=== PATIENT | male | born 1985 | race Caucasian/White ===

== ENCOUNTER 2024-10-18 10:25 | Outpatient (AMB) | payer BC, SELFPAY ==
--- NOTE | 2024-10-18 10:28 | MHC.PC.OV ---
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 Allergies Seasonal Allergies Allergy (Verified 10/18/24 10:32) Itchy runny eyes and nose Shell Fish Allergy (Uncoded 10/18/24 10:32) Tongue Itches Tobacco use date assessed: 10/18/24 Dental Screening Dental Screen Date: 10/18/24 Did you have a dental visit in the last 12 months?: Yes Did you have a dental problem in the last 6 months where you did not have access to dental care?: No Was dental information given to patient?: Patient has dentist HPI HPI Comments History of Present Illness Details This is a 39-year-old female with a past medical history of shellfish allergy and seasonal allergies presenting to establish care. She transferred from another practice. She is allergic to shellfish (crustaceans). No recent reactions. Consumption of shrimp and lobster causes tongue tingling and tongue and lip itching. She does not have an EpiPen that is up-to-date. EpiPen was submitted to the pharmacy, and we reviewed administration and follow up care. She is overdue for an annual gynecology exam. She has an IUD, and this is her 5th here with it. She is referred to Gynecology. She is due for a mammogram. This is ordered. Patient's sister had breast cancer at age 52. No family history of colon cancer. We discussed colonoscopy is recommended at age 43. Patient donates plasma. She tried to donate last March, but they told her that 1 of her screening labs was potentially abnormal. She brought paperwork from [employer] that says that her serum protein electrophoresis could potentially be abnormal. Albumin 57.5 (reference range 49.5 to 69.9) Alpha 1 3.8 (reference range 2.4 to 6.0) Alpha to 8.2 (reference range 5.6 to 14.6) Beta 10.3 (reference range 7.3-15.1) Gamma 20.2 (reference range 7.3-22.3) She has a form that she provided to me that needs to be filled out before she can donate again. Patient reports bilateral shoulder and knee pain that has been bothering her for a few months. She has a history of fraying of the right rotator cuff in the past that was treated a few years ago with physical therapy and activity restriction. Her shoulders bother her more when she tries to lift. She has some clicking in her right shoulder. Patient says her knees have always hurt, but they have been bothering her more in the last few months. Knee pain occurs with weight-bearing activities. Ice alleviates symptoms. She does not take medications for them. Reports that she did have a tick bite on her stomach last year. No bull's-eye rash. No joint swelling or redness. No history of trauma. No fatigue, fevers or chills. Her diastolic blood pressure is mildly elevated today. There is a family history of hypertension. Denies personal history of hypertension. She says she has some social anxiety. She also drank a caffeinated beverage before the appointment. Declines immunizations. ROS: Constitutional: No unexplained weight loss, fever, chills, fatigue or night sweats. Eyes: No vision changes, blurry vision, double vision, eye pain, eye redness, eye discharge. ENT: No hearing loss, sneezing, congestion, runny nose or sore throat. Respiratory: No shortness of breath, cough or sputum production. Cardiovascular: No chest pain, chest pressure or chest discomfort. No palpitations or pedal edema. Gastrointestinal: No anorexia, nausea, vomiting or diarrhea. No abdominal pain or blood in stool. Genitourinary: No dysuria, hematuria, urinary frequency. Neurologic: No headache, dizziness, syncope, unilateral weakness, ataxia, numbness or tingling in the extremities. Musculoskeletal: See HPI Hematologic/Lymphatics: No bleeding or bruising. No painful lymph nodes. Skin: No rash , itching or changing moles or freckles. Endocrine: No cold or heat intolerance. No polyuria or polydipsia. Psychiatric: No depression or SI/HI. Physical exam: Constitutional: Alert, in no distress. Head: Normocephalic. Eyes: Pupils are equal, round and reactive to light. Extraocular muscles intact. Ear, Nose and Throat: Canals clear. TMs normal. Normal nasal mucosa. No nasal discharge. No oral lesions. Neck: Supple, Full range of motion. No lymphadenopathy. No palpable thyroid masses. Respiratory: Clear to auscultation. Cardiovascular: S1 S2 regular. No murmurs. Gastrointestinal: Abdomen soft, non-tender, non-distended. Normal bowel sounds. No palpable masses. Neurologic: No focal neurological deficits. Symmetric patellar reflexes. Moves all extremities spontaneously. Sensation intact bilaterally. Skin: No rashes Musculoskeletal: Shoulders: No visible deformity, redness or swelling. Crepitus of the right shoulder joint with range of motion activities. Full range of motion of shoulders. Bilateral empty can maneuver produces shoulder pain. Shoulder strength 5/5 bilaterally. Knees: No crepitus, deformity, swelling or redness of the knees. Full range of motion of the knees. Nontender to palpation. Strength 5/5 bilaterally. Negative Marion maneuver bilaterally. Extremities: Warm and well perfused. No clubbing, cyanosis or edema. Intact peripheral pulses upper and lower extremities. Psychiatric: Normal mood and affect [facility] Medical History (Updated 10/18/24 @ 13:33 by MAMIE Fuchs) Elevated blood pressure reading without diagnosis of hypertension Pain, joint, multiple sites Abnormal blood chemistry test Screening for cardiovascular condition Routine physical examination Social History (Updated 10/18/24 @ 10:35 by Ashley Lancaster MA) Housing: House Alcohol intake: current Comment: Occassionaly Patient Tobacco Use Status: Never used Tobacco e-Cigarette/Vaping Use: Never Used Second Hand Smoke Exposure: No service: No Current occupational status: employed 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 1. Little interest or pleasure in doing things: not at all 2. Feeling down, depressed, or hopeless: not at all 3. Trouble falling or staying asleep, or sleeping too much: not at all 4. Feeling tired or having little energy: several days 5. Poor appetite or overeating: not at all 6. Feeling bad about yourself - or that you are a failure or have let yourself or your family down: not at all 7. Trouble concentrating on things, such as reading the newspaper or watching television: several days 8. Moving or speaking so slowly that other people could have noticed. Or the opposite - being so fidgety or restless that you have been moving around a lot more than usual: not at all 9. Thoughts that you would be better off or of hurting yourself in some way: not at all Total score: 2 Depression Screening Interpretation: Negative Depression Screening Done: Yes [id number] - PHQ-9 Billing: Patient declined-do not bill Source: Developed by Drs. Evaristo Story, Renu Brower, Himanshu Ramos and colleagues, with an educational rhonda from [employer]. Thrive Questionnaire Date Thrive assessed: 10/18/24 I am a: Patient What is your living situation today?: I have a steady place to live Within the past 12 months, did the food you bought not last and you didn't have the money to get more?: Never true Within the past 12 months, did you worry whether your food would run out before you got money to buy more?: Never true Do you have trouble paying for medicines?: No Do you have trouble getting transportation to medical appointments?: No Do you have trouble paying your heating and electricity bill?: No Do you have trouble taking care of your child, family member or friend?: No Do you have trouble with day-to-day activities such as bathing, preparing meals, shopping, managing finances, etc.?: No Are you currently unemployed and looking for a job?: No Are you interested in more education?: Yes Please select the resources that you would like help with: Education Currently or been in a relationship where the following occur: No concerns reported THRIVE Score: 0 AUDIT C Alcohol Use Questionnaire (AUDIT-C) 1. How often do you have a drink containing alcohol?: Monthly or less 2. How many drinks containing alcohol do you have on a typical day when you are drinking?: 1 or 2 3. How often do you have six or more drinks on one occasion?: Never Total Score: 1 Score Reviewed/Action Taken: No APRIL-7 AMB Questionnaire APRIL-7 Date APRIL - 7 assessed: 10/18/24 Feeling nervous, anxious, or on edge: 1 = Several days Not being able to stop or control worryin = Several days Worrying too much about different things: 1 = Several days Trouble relaxin = Several days Being so restless that it is hard to sit still: 1 = Several days Becoming easily annoyed or irritable: 1 = Several days Feeling afraid as if something awful might happen: 1 = Several days Total APRIL-7 score (0-4 normal; 5-9 mild; 10-14 moderate; 15-21 severe): 7 Source: Developed by Drs. Evaristo Story, Renu Brower, Himanshu Ramos and colleagues, with an educational rhonda from [employer]. APRIL-7 Assessment Billing APRIL-7 Assessment Tool: APRIL-7 Assessment 37750 Physical exam (Primary Care) Vital Signs: Last Vital Signs Temp 98.0 F 10/18/24 10:36 Pulse 77 10/18/24 10:36 Resp 14 10/18/24 10:36 BP 128/88 10/18/24 10:36 Pulse Ox 97 10/18/24 10:36 Oxygen Delivery Method Room Air 10/18/24 10:36 BMI result Body Mass Index 34.8 Tobacco/Smoking Status: Tobacco use Status Tobacco use date assessed 10/18/24 10/18/24 10:40 Patient Tobacco Use Status Never used Tobacco 10/18/24 10:40 e-Cigarette/Vaping Use Never Used 10/18/24 10:40 PHQ-9: PHQ-9 Score PHQ-9: Total score 2 10/18/24 11:14 Depression Screening Interpretation: Negative Thrive Assessment: Date of Thrive Assessment Date Thrive assessed 10/18/24 10/18/24 10:40 Currently or been in a relationship where the following occur: No concerns reported Coding Level of Care Code New Pt Prev Care 40-64y(28238) Diagnoses Routine physical examination Z00.00 Screening for cardiovascular condition Z13.6 Abnormal blood chemistry test R79.9 Pain, joint, multiple sites M25.50 Elevated blood pressure reading without diagnosis of hypertension R03.0 Additional Codes APRIL-7 Assessment Billing - APRIL-7 Assessment Tool: APRIL-7 Assessment 05296 ([id number]) Assessment & Plan Assessment & Plan (1) Routine physical examination: Code(s): Z00.00 - Encounter for general adult medical examination without abnormal findings Category: Medical Plan: Patient is seen today for a routine physical. 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 - Cholesterol screening - Osteoporosis prevention including calcium/vitamin D intake, weight bearing exercise & smoking cessation - Nutritional and exercise counseling - Counseling of injury prevention including fire prevention, smoke alarms and seat belt usage - Screening for depression - Recommendation of an eye exam - Screening for substance abuse (2) Screening for cardiovascular condition: Code(s): Z13.6 - Encounter for screening for cardiovascular disorders Category: Medical (3) Abnormal blood chemistry test: Code(s): R79.9 - Abnormal finding of blood chemistry, unspecified Category: Medical Plan: Ordered SPEP, immunofixation, CBC, CMP, immunoglobulins. (4) Pain, joint, multiple sites: Code(s): M25.50 - Pain in unspecified joint Category: Medical Plan: Ordered x-rays of the shoulders and knees, rheumatoid factor, EVIE, sed rate and Lyme and vitamin-D. (5) Elevated blood pressure reading without diagnosis of hypertension: Code(s): R03.0 - Elevated blood-pressure reading, without diagnosis of hypertension Category: Medical Plan: Decrease caffeine. Follow low-sodium diet. Regular exercise recommended. Patient also would like nutrition consult. Referral placed. She will check blood pressures at home and bring a log with her in 8 weeks to the follow up appointment. Plan Follow up in 8 weeks for a blood pressure check in to review results. Orders: Orders Protein Electrophoresis, Serum Today R77.8 - Other specified abnormalities of plasma proteins, R79.9 - Abnormal finding of blood chemistry, unspecified Teachey/Lambda Light Chain Serum Today R77.8 - Other specified abnormalities of plasma proteins, R79.9 - Abnormal finding of blood chemistry, unspecified Immunofixation Pnl, Serum Today R77.8 - Other specified abnormalities of plasma proteins, R79.9 - Abnormal finding of blood chemistry, unspecified Immunoglobulins,IgG IgA IgM Today R77.8 - Other specified abnormalities of plasma proteins, R79.9 - Abnormal finding of blood chemistry, unspecified Lyme IgG/IgM w/reflex to WB Today M25.50 - Pain in unspecified joint, R79.9 - Abnormal finding of blood chemistry, unspecified, Z00.00 - Encounter for general adult medical examination without abnormal findings, Z13.6 - Encounter for screening for cardiovascular disorders Rheumatoid Factor Today M25.50 - Pain in unspecified joint, R79.9 - Abnormal finding of blood chemistry, unspecified, Z00.00 - Encounter for general adult medical examination without abnormal findings, Z13.6 - Encounter for screening for cardiovascular disorders Erythrocyte Sedimentation Rate Today M25.50 - Pain in unspecified joint XR Shoulder Neftaly min 2V Today M25.50 - Pain in unspecified joint XR Knee Neftaly 3V Today M25.50 - Pain in unspecified joint TSH reflex Free T4 Today Z00.00 - Encounter for general adult medical examination without abnormal findings, Z13.6 - Encounter for screening for cardiovascular disorders Complete Blood Count no Diff Today Z00.00 - Encounter for general adult medical examination without abnormal findings, Z13.6 - Encounter for screening for cardiovascular disorders Comprehensive Met. Panel Today Z00.00 - Encounter for general adult medical examination without abnormal findings, Z13.6 - Encounter for screening for cardiovascular disorders Lipid Panel Today E78.5 - Hyperlipidemia, unspecified, Z00.00 - Encounter for general adult medical examination without abnormal findings, Z13.6 - Encounter for screening for cardiovascular disorders MM screening mammo BI Today Z12.31 - Encounter for screening mammogram for malignant neoplasm of breast Vitamin D 25-OH (D2 and D3) Today M25.50 - Pain in unspecified joint, M85.80 - Other specified disorders of bone density and structure, unspecified site, R79.9 - Abnormal finding of blood chemistry, unspecified, Z00.00 - Encounter for general adult medical examination without abnormal findings, Z13.6 - Encounter for screening for cardiovascular disorders EVIE Reflex Titer and Pattern Today M25.50 - Pain in unspecified joint, R79.9 - Abnormal finding of blood chemistry, unspecified, Z00.00 - Encounter for general adult medical examination without abnormal findings, Z13.6 - Encounter for screening for cardiovascular disorders Referrals STATION INSTALLER Referral Z00.00 - Encounter for general adult medical examination without abnormal findings Liner Worker Nutrition Referral E66.811 - Obesity, class 1 Medications: New epinephrine (EpiPen) for 2 doses 0.3 mg (0.3 mL) IM Q10M PRN 2 ea 1RF anaphylaxis
[2024-10-18 10:36] VITALS: BP 128/88; PULSE 77; RESP 14; TEMP 36.7; O2SAT 97; BMI 34.8
== END 2024-10-18 11:29 | disposition home or self-care (01) ==
LOC: HO.HMCFM 10:26
PROVIDERS: PCP Physician Assistant Medical; Visit Provider Physician Assistant Medical
DX: Z00.00 Encounter for general adult medical examination without abnormal findings (principal); Z13.6 Encounter for screening for cardiovascular disorders; R79.9 Abnormal finding of blood chemistry, unspecified; M25.50 Pain in unspecified joint; R03.0 Elevated blood-pressure reading, without diagnosis of hypertension

== ENCOUNTER → 2024-10-18 10:25 | Outpatient (BNVA) | payer BC, SELFPAY | PROVIDERS: PCP Physician Assistant Medical; Visit Provider Physician Assistant Medical | DX: Z00.00 Encounter for general adult medical examination without abnormal findings (principal); R79.9 Abnormal finding of blood chemistry, unspecified; R77.8 Other specified abnormalities of plasma proteins; M25.50 Pain in unspecified joint; R03.0 Elevated blood-pressure reading, without diagnosis of hypertension; E66.811 Obesity, class 1; Z68.34 Body mass index [BMI] 34.0-34.9, adult | CPT/HCPCS: 96127 ==

== ENCOUNTER 2024-11-07 09:00 | Outpatient (REF) | payer BC, SELFPAY ==
--- NOTE | ~2024-11-07 | XR_ITS ---
CLINICAL HISTORY: Bilateral knee pain 3 view right knee 3 view left knee Comparison: None Findings: No fractures or dislocations. No significant loss of joint space, osteophytes, or erosions. No joint effusion. No radiopaque foreign body. IMPRESSION: No acute fracture, dislocation or significant joint effusion. This document has been electronically signed by: Robyn Kwon DO on 11/07/2024 16:19:30
--- NOTE | ~2024-11-07 | XR_ITS ---
CLINICAL HISTORY: M25.50 - Pain in unspecified joint Left shoulder four views Comparison: None Findings: No acute fracture or dislocation identified. No acute focal bony abnormality. No radiopaque foreign body noted. Impression: No acute bony abnormality Right shoulder four views Comparison: None Findings: No acute fracture or dislocation identified. No acute focal bony abnormality. No radiopaque foreign body noted. Impression: No acute bony abnormality This document has been electronically signed by: Leno Gotti MD on 11/07/2024 19:57:43
--- OUTSIDE RECORDS SUMMARY | 2024-11-07 09:32 | XMS_ITS | Data Portability ---
Author Organization [facility] Address [address] [place] [address] Care Team Providers Care Uptwister Tender Name Role Phone FLAKITO MOSES Primary Care Provider [phone] ANN FLAKITO Referring Provider Assessment No assessment recorded. Plan of Treatment Reminders Order Date Submit Date Provider Last Modified By Organization Details Last Modified Time Details Appointments None record ed. Lab pap, LB + HR HPV 2019 020 [facility], [address] [place], [address], 0 08:41:06 Referral None record ed. Procedures None record ed. Surgeries None record ed. Imaging None record ed. Medication Orders cephal exin 500 mg capsul e 2021 022 [id number], [address] [place], [place], [id number], 2 10:21:12 Patient TargetsNo targets recorded. Patient Instructions Encounter Date Encounter Id Patient Instructions Last Modified By Organization Details Last Modified Time 11/26/2014 [id number] Pt? ? ?doing well.? ? ? Reviewed effectiveness, precautions. Advised to monitor, call as needed. Plans regular audit manager care with PCP. carrie Not available 11/26/2014 15:15:22 08/21/2019 [id number] Routine counselling regarding periods, pap screening, breast health, sexual health. Communication encouraged. I advised pt I highly doubt IUD is influence on libido. Discussed iud and BTL. Pt wants to continue w IUD. Will schedule removal/replacemen t in September. carrie Not available 08/21/2019 11:11:38 02/28/2020 [id number] Pt doing well wi th IUD. Reviewed effectiveness, precautions. Advised to monitor, call as needed. Plans routine audit manager care {{here* with PCP}}. Reassured breast exam. Advised monitor, report changes to PCP. Ask sister if genetics planned. adamgaro Not available 02/28/2020 17:12:13 Reason for Referral None Reported. Results Created Date Observation Date Name Description Value Unit Range Abnormal Flag Note LastModifiedBy Organization Detail LastModifiedTime 08/21/19 20 08/27/2019 pap, LB + HR HPV diagnosis: Commen t . normal NEGAT KALEB FOR INTRA EPITH ELIAL MAKEDA N OR MARIE JOSUE . Not Available [facility] [address] [place] [address], [address], 08/27/2019 14:11:34 08/21/19 20 08/27/2019 pap, LB + HR HPV spec adequacy Commen t . normal Satis facto ry for evalu ation . Endoc ervic al and/o r squam ous metap lasti c cells (endo cervi yoshi compo nent) are prese nt. Not Available [facility] [address] [place] [address], [address], 08/27/2019 14:11:34 08/21/19 20 08/27/2019 pap, LB + HR HPV performed by Rayo t . normal Ginny dunlap, Cytot yovani franco (ASCP ) Not Available [facility] [address] [place] [address], [address], 08/27/2019 14:11:34 08/21/19 20 08/27/2019 pap, LB + HR HPV . . . normal Not Available [facility] [address] [place] [address], [address], 08/27/2019 14:11:34 08/21/19 20 08/27/2019 pap, LB + HR HPV note Commen t . normal The Pap smear is a scree kieran test mary davidson to aid in the detec tion of yang ligna nt and malig nant condi tions of the uteri ne cervi x. It is not a diagn ostic proce dure and shoul d not be used as the sole means of detec ting cervi yoshi cance r. Both false -posi tive and false -nega tive repor ts do occur . Not Available [facility] [address] [place] [address], [address], 08/27/2019 14:11:34 08/21/19 20 08/27/2019 pap, LB + HR HPV test methodolog Commen t . normal This liqui d based ThinP rep(R ) pap test was scree stuart with the use of an image guide marily theodore. Not Available [facility] [address] [place] [address], [address], 08/27/2019 14:11:34 08/21/19 20 08/27/2019 pap, LB + HR HPV HPV aptima Negati ve negati ve normal This nucle ic acid ampli ficat ion test detec ts fourt een high- risk HPV types (16,1 8,31, 33,35 ,39,4 5,51, 52,56 ,58,5 9,66, 68) witho ut diffe renti ation . Perfo rmed at: [facility] [place] [address], [place] [address] Lab Direc tor: Dario harrell MD, Phone : [phone] Perfo rmed at: [facility] [place] [address] [facility] [address], [place] [address] Lab Direc tor: Dario harrell MD, Phone : [phone] Not Available [facility] [address] [place], [address], 08/27/2019 14:11:34 Result Notes None recorded. Problems Name Problem SNOMED Code Status Onset Date Resolution Date Notes Provider Name and Address Organization Details Recorded Time No current problems or disability 025267915 Active Jj Morrow MD [address] [place] [address], [address], [facility] 0 10:44:41 Severe pre-eclamps ia - not delivered 830910112 Completed 08/21/2019 Jj Morrow MD [address] [place], [place] [address] [place], [address], [facility] 0 10:44:37 Severe pre-eclamps ia - delivered 152651095 Completed 08/21/2019 Jj Morrow MD [address] [place], [place] [address] [place], [address], [facility] 0 10:44:34 Transient hypertensio n of - not delivered 128998742 Completed 08/21/2019 Jj Morrow MD [address] [place], [place] [address] [place], [address], [facility] 0 10:44:39 Forceps delivery - delivered Completed 08/21/2019 Jj Morrow MD [address] [place], [place] [address] [place], [address], [facility] 0 10:44:27 Mechanical complicatio n of intrauterin e contracepti ve device 403510953 Completed 08/21/2019 Jj Morrow MD [address] [place], [place] [address] [place], [address], [facility] 0 10:44:31 Problem Notes None recorded. Procedures Surgical History Date Name Laterality Status Provider Name and Address Organization Details Recorded Time 12/27/19 20 IUD Insertion completed Jj Morrow MD [address] [place], [place] [address] [place], [address], [facility] 12/27/2019 10:28:56 12/27/19 20 IUD Removal completed Jj Morrow MD [address] [place], [place] [address] [place], [address], [facility] 12/27/2019 10:30:07 08/21/19 20 Date of Last Pap Smear completed Jj Morrow MD [address] [place], [place] [address] [place], [address], [facility] 08/29/2019 14:03:38 09/26/19 15 Mirena IUD Insertion completed Jj Morrow MD [address] [facility] [place], [address], [facility] 09/25/2014 11:53:01 09/26/19 15 Hysteroscopy with Endometrial Biopsy or IUD Removal completed Jj Morrow MD [address] [facility] [place], [address], [facility] 09/25/2014 11:52:10 hernia repair completed Lauren Moreno CMA [facility] 08/30/2014 13:39:39 Imaging Results None recorded. Procedure Notes None recorded. 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 [employer] Issuing Agency Serial Number Lot Number Status Provider Name and Address Organization Details Recorded Time Mirena IUD [facility] [id number] Y Dana Fuchs RN [facility], [facility] 12/27/2019 10:20:26 Allergies No known drug allergies Medications Name Sig Start Date Stop Date Status Note LastModified by Organization Details LastModified Time amoxicilli n 500 mg capsule 08/21 completed Not Available Not Available Not Available Mirena 21 mcg/24 hr (up to 8 years) 52 mg intrauteri ne device Take by intrauter ine route. 2014 active third IUD, rem/re pl 2019 Not Available Not Available Not Available azithromyc in 250 mg tablet 08/21 completed Not Available Not Available Not Available ibuprofen 800 mg tablet TAKE 1 TABLET BY MOUTH THREE TIMES DAILY FOR 5 DAYS NEEDED FOR MILD PAIN active Not Available Not Available No t Available prednisone 5 mg tablet 08/21 completed Not Available Not Available Not Available permethrin 5 % topical cream 08/21 completed Not Available Not Available Not Available sulfametho xazole 800 mg-trimeth oprim 160 mg tablet TAKE 1 TABLET BY MOUTH TWICE DAILY FOR 10 DAYS active Not Available Not Available No t Available citalopram 20 mg tablet 08/21 completed Not Available Not Available Not Available cephalexin 500 mg capsule TAKE 1 CAPSULE BY MOUTH EVERY 6 HOURS FOR 5 DAYS active Not Available Not Available No t Available epinephrin e 0.3 mg/0.3 mL injection, auto-injec tor active Not Available Not Available Not Available albuterol sulfate HFA 90 mcg/actuat ion aerosol inhaler active Not Available Not Available Not Available fluticason e propionate 50 mcg/actuat ion nasal spray,susp ension active Not Available Not Available Not Available amoxicilli n 875 mg-potassi um clavulanat e 125 mg tablet TAKE 1 TABLET BY MOUTH TWICE DAILY FOR 3 DAYS active Not Available Not Available No t Available clindamyci n phosphate 1 % topical solution 08/21 completed Not Available Not Available Not Available azithromyc in 500 mg tablet 08/21 completed Not Available Not Available Not Available Vitals Date Recorded Body height Body mass index (BMI) Body weight Systolic blood pressure Diastolic blood pressure Provider Name and Address Organization Details Last Updated DateTime 08/21/2019 162.56 cm 33 kg/m2 50636.74 g 120 mm[Hg] 70 mm[Hg] Lauren Moreno CMA [facility] 0 10:36:19 Date Recorded Body height Body mass index (BMI) Body weight Systolic blood pressure Diastolic blood pressure Provider Name and Address Organization Details Last Updated DateTime 02/28/2020 162.56 cm 34.2 kg/m2 24815.88 g 142 mm[Hg] 90 mm[Hg] Ellie dennison [facility] 0 15:52:42 Date Recorded Body temperature Heart rate Oxygen saturation Oxygen saturation in Arterial blood by Pulse oximetry Systolic blood pressure Diastolic blood pressure Provider Name and Address Organization Details Last Updated DateTime 2 97.8 [degF] 92 /min 98 % 98 % 142 mm[Hg] 88 mm[Hg] Kayla Eason [facility] 2 09:48:15 Social History Question Answer Notes LastModified by Organizat ion Details LastModified Time Tobacco Smoking Status Never Smoker [facility] 08/30/2014 13:39:39 What Is Your Level Of Alcohol Consumption? Occasional Information not available 08/30/2014 Do You Or Have You Ever Used E-cigarettes Or Vape? Never Used Electronic Cigarettes Information not available 08/21/2019 Illicit Drugs No Information not available 08/21/2019 Marital Status Information not available 08/21/2019 What Was The Date Of Your Most Recent Tobacco Screening? 08/21/2019 adamour Information not available 08/21/2019 Are You Sexually Active? Yes Information not available 08/30/2014 Sex: Unknown Functional Status None recorded. Mental Status None recorded. Family History Relationship Description Onset Age of this Age Resolved Age Notes LastModified by Organization Details LastModified Time Paternal Uncle Malignant neoplasm of lung edack Not available 2019 10:33:51 Paternal Uncle Malignant neoplasm of brain edack Not available 2019 10:34:02 Brother Hypertensive disorder edack Not available 2019 10:34:22 Brother Diabetes mellitus edack Not available 2019 10:34:29 Sister Ductal carcinoma in situ of breast 48 double mastec serena 2020- pt not sure if geneti cs offere d adamour Not available 02/28/2020 16:16:00 Notes:heart disease both shubham es grandparents Medical History Condition Response other Y Gynecological History Statement/Question Response 1 Contraception Mirena Date of LMP 12/17/2019 Para 1 Last menstrual period History of abnormal pap unsure Date of Last Pap Smear 08/21/2019 Obstetrics History GPAL:G 1 P 1 0 0 1 Type Value Full Term 1 Living 1 Total 1 Past Encounters Encounter ID Performer Location Encounter Start Date Encounter Closed Date Diagnosis/Indication Diagnosis SNOMED-CT Code Diagnosis ICD10 Code Diagnosis Note [id number] Allison Holguin MD [facility] [place] [address] [place] [address] 04/22/2009 13:28:25 04/22/2009 13:51:29 [id number] Jerry [place] MD [facility] [address] [place] [address] 02/26/2009 13:13:00 02/26/2009 13:46:10 [id number] Allison Holguin MD [facility] [address] [address] 05/21/2009 09:57:04 05/21/2009 11:00:03 [id number] Allison Holguin MD [facility] [place] [facility] [address] [place] [address] 03/25/2009 10:35:51 03/25/2009 11:17:54 [id number] Jj Morrow MD [facility] [address] [place] [address] [place] [address] 09/05/2009 14:55:04 09/05/2009 15:31:45 [id number] Allison Holguin MD [facility] [address] [place] [address] [place] [address] 07/25/2009 10:24:45 07/25/2009 11:30:36 [id number] Jj Morrow MD - Outpatien t [address] [facility] [place] [address] 07/25/2009 00:00:00 12/01/2010 03:30:06 [id number] Allison Holguin MD [facility] [address] [place] [address] [place] [address] 07/02/2009 10:00:12 07/02/2009 10:35:19 [id number] Jj Morrow MD - In-Patien t [address] [facility] [place] [address] 07/27/2009 00:00:00 12/01/2010 03:30:06 [id number] Jerry [place] MD [facility] [address] [place] [address] [place] [address] 06/19/2009 10:48:42 06/19/2009 11:11:50 [id number] Allison Holguin MD [facility] [address] [place] [address] [place] [address] 07/16/2009 09:12:10 07/16/2009 09:40:42 [id number] Jj Morrow MD [facility] [address] [place] [address], [facility] [place] [address] 07/22/2009 10:51:30 07/22/2009 11:57:24 [id number] Jj Morrow MD [facility] [address] [place] [address] [place] [address] 07/08/2009 10:49:29 07/08/2009 11:21:09 [id number] Jj Morrow MD [facility] [address] [place] [address] [place] [address] 07/02/2009 00:00:00 12/01/2010 03:30:06 [id number] Jj Morrow MD [facility] [address] [place] [address] 08/30/2014 13:19:08 08/30/2014 15:40:07 Uses IUD (intrauterine device) contraception 088736393 [id number] Jj Morrow MD [facility] [address] [place] [address] 09/25/2014 10:54:20 10/01/2014 10:59:28 Mechanical complication of intrauterine contraceptive device 791116203 Insertion of intrauterine contraceptive device 11079933 [id number] Jj Morrow MD [facility] [address] [place] [address] 11/26/2014 14:41:08 11/27/2014 08:35:45 IUD check 989010058 [id number] Jj Morrow MD [facility] [address] [place] [address] 08/21/2019 10:19:02 08/21/2019 11:14:27 Screening for malignant neoplasm of cervix 566809888 Z12.4 Uses IUD (intrauterine device) contraception 714687144 Z97.5 [id number] Jj Morrow MD [facility] [address] [place] [address] 12/27/2019 09:43:42 12/27/2019 11:49:59 Uses IUD (intrauterine device) contraception 859237975 Z97.5 Insertion of intrauterine contraceptive device 45645795 Z30.848 [id number] Jj Morrow MD [facility] [address] [place] [address] 02/28/2020 15:32:28 02/28/2020 16:24:10 IUD check 592200504 Z30.431 Lesion of breast 8902676 04 N60.81 [id number] MAMIE LARA [facility] [place] [address] [place] [address] 12/09/2021 09:09:24 12/09/2021 10:43:36 Avulsion of skin 166488391 T14.8XXA Pt presents with skin avulsion to left index fingervita ls WNL, evidence of fingertip avulsion with active bleeding. Area cleaned, surgifoam placed on wound along with non stick telfa and pressure dressing. Will start on Keflex given knife was dirty and extent of wound. Advised keeping dressing in place for minimum 48 hours. Pt will call pcp regarding tetanus and call back should she not be up to date. Advised daily dressing changes after initial dressing. warning signs of when to RTC discussed with patient who is in agreement with plan Health Concerns Section Related Observation LastModified by Organization Detai ls LastModified Time None Recorded Concern Status LastModified by Organization Details LastModified Time None Recorded Advance Directives Directive None Recorded Payers Insurance Date Sequence Insurance Name Policy Number Policy Church Covered Member ID Church Member ID Guarantor Name 04/28/2012 [facility] 12/23/2019 1 [employer] PL[employer] (HMO) [id number] Zelda Sarah [id number] [facility] 12/23/2019 1 [facility] Zelda Smith [id number] [facility] 08/21/2019 1 [facility] (PPO) Marv Smith [id number] Zelda [place] 12/09/2021 1 [place] O [facility] (O) [id number] Zelda Smith [id number] Zelda Sarah Notes Date Note Type Note Provider Name and Address Organization Details Recorded Time 08/21/2019 text/html wants to discuss continuing with Derek hasn't had annual recently. Patient reports no abnormal vaginal bleeding, periods very light. Happy with method. Concern about decr libido- relationship good- both work full and parttime jobs. Has 10 yo son- childbearing complete. Jj Morrow MD [address] [place] [address], [address], [facility] 08/21/2019 11:12:53 12/27/2019 text/html Procedure review ed and signed consent obtained. - IRMA Morrow MD [address] [place] [address], [phone], [facility] 12/27/2019 10:32:32 02/28/2020 text/html Breast MassRepor luis bypatient.Location:rig ht Onset/Timin day Quality:asymptomatic; localized; no lump palpable. Severity:mild Context:performs breast self examination; Sister DCIS Associated Symptoms:no fever; no skin redness; no nipple discharge; no breast swelling; no arm pain; no arm swelling; no chest painContraception FollowupReported bypatient.Context:IUD Followup- Type-Mirena Associated Symptoms:no side effects; No menses so far. IC OK. Onset/Timin months; no issues.Notes: Pt presents today for iud f/u. also would like you to look at a spot on right breast she is concerned about, no pain. YL Jj Morrow MD [address] [place], [address], [facility] 02/28/2020 17:12:36 12/09/2021 text/html 36 year old fema le presents with a laceration of the left 2n finger, she cut it with a knife. Last TD unknown -LG Pt presents with laceration along left second finger. Cut it with a knife yesterday 11-12am. Unsure about tetanus shot.-she was putting pressure on it with bandaids, this am tried to change bandage and it wouldn't stay d/t bleeding. Jaime Gallo III, MD [address] [place], [address], [facility] 12/09/2021 11:16:10 OBGyn Episode Ob Episode Information Episode Created Date Number of Fetuses Patient Bloodtype Patient rh Status Prepregnancy Weight lbs Domestic Partner Domestic Partner Phone Father Name Emergency Telecommunications Dispatcher Status 01/10/20 09 1 CLOSED Fetus Data First Name Last Name Admitted to NICU Weight (g) Sex Living Outcome Pediatric Complications Fetus ID Race Codes Race Delivery Type [id number] Rodríguez Calculation Initial Rodríguez Date Initial Exam Date Initial Exam Provider Initial Ultrasound Date Last Menstrual Period Date Ultra Sound Weeks Gestation 01/09/2009 0 Eighteen To Twenty Week Rodríguez Update Ultra Sound Date Fundal Height At Umbil Quickening Date Ultra Sound Latest Weeks Gestation Final Rodríguez Confirmed By Final Rodríguez Confirmed Date Final Rodríguez Date Ultra Sound Latest Days Gestation 0 07/25/19 10 0 Menstrual History Last Menstrual Date Menses Monthly On Bcp Conception Prior Menses Frequency Hcg Plus Date Menarche Onset Age Delivery Information Delivery Date Delivery Type Labor Anesthesia Weeks Gestation Incision Type Labor Labor Length Hrs Delivered By Post Complications Tubal Sterilization Discharge Date Comments Discharge Information Feeding Method Contraceptive Method Maternal HG B and HCT Levels
--- OUTSIDE RECORDS SUMMARY | 2024-11-07 09:32 | XMS_ITS | Data Portability ---
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 Plan of Treatment Reminders Order Date Submit Date Provider Last Modified By Organization Details Last Modified Time Details Appointments None recorded. Lab pap, LB + reflex HR HPV if ASC-U, ASC-H, LSIL, HSIL, SHARATH - Reflex HPV testing for ASCUS and LGSIL 2015 016 JUSTIN [facility] (Centralized Electronic Ordering - All Locations), Patient Can Go To The Location Of Their Choice, [id number] 6 14:36:09 CBC 2015 016 [facility], [address] [place] [address], [address], 6 10:05:29 CMP, serum or plasma 2015 016 [facility], [address] [place] [address], [address], 6 10:05:29 Referral None recorded. Procedures None recorded. Surgeries None recorded. Imaging None recorded. Medication Orders permethri n 5 % topical cream 2016 017 [facility][id number], [address], [place], [id number], 7 16:41:51 triamcino lone acetonide 0.025 % topical ointment 2015 016 [id number], [address], [place], [id number], 6 10:34:09 meclizine 12.5 mg tablet 2015 016 [facility] #[id number], [address], [place], [phone], 6 09:47:47 Patient TargetsNo targets recorded. Patient Instructions Encounter Date Encounter Id Patient Instructions Last Modified By Organization Details Last Modified Time 01/24/2017 [id number] After a discussi on of treatment options, which included consideration of best practices, patient preferences, and the patient? s individual lifestyle and treatment goals, as well as consideration and attempted mitigation of any barriers to meeting the patient? s goals, the following treatment plan and objectives were adopted: -Good to see you today! -Take your medications as prescribed, and please let us know if you have any unwanted or unexpected side effects. -Please review the patient education provided to you today. -Keep your follow-up appointments as scheduled. -Please let us know if you are worse in any way, we are manager completions 24 hours a day, 7 days a week by phone: [phone]. -Please let us know if you have any further questions or concerns. Not available 01/24/2017 16:44:44 > 50% of 20 irene te appointment spent in counseling. Not available 01/24/2017 16:46:50 Reason for Referral None Reported. Results Created Date Observation Date Name Description Value Unit Range Abnormal Flag Note LastModifiedBy Organization Detail LastModifiedTime 08/16/19 16 08/18/2015 CMP, serum or plasm a glucose 88 mg/dL 70-100 Not Available [address], [address], 08/18/2015 08:28:35 08/16/19 16 08/18/2015 CMP, serum or plasm a BUN 8 mg/dL 7-18 Not Available [address], [address], 08/18/2015 08:28:35 08/16/19 16 08/18/2015 CMP, serum or plasm a creatinine 0.9 mg/dL 0.8-1. 3 Not Available [address], [address], 08/18/2015 08:28:35 08/16/19 16 08/18/2015 CMP, serum or plasm a B/C 8.9 ratio Not Available [address], [address], 08/18/2015 08:28:35 08/16/19 16 08/18/2015 CMP, serum or plasm a GFR -non 81.3 mL/mi n Recom qasim d GFR by the Natio nal Kidne y Found ation >60 mL/mi n/1.7 3m2 - Sumi l <60 mL/mi n/1.7 3m2 - Chron ic Kidne y Disea se <15 mL/mi n/1.7 3m2 - Kidne y Failu re Not Available [address], [address], 08/18/2015 08:28:35 08/16/19 16 08/18/2015 CMP, serum or plasm a GFR - if 93.5 mL/mi n For Afric an Ameri can patie nts: Resul ts Multi plied by 1.21 Not Available [address], [address], 08/18/2015 08:28:35 08/16/19 16 08/18/2015 CMP, serum or plasm a sodium 139 mmol/ L 136-14 5 Not Available [address], [address], 08/18/2015 08:28:35 08/16/19 16 08/18/2015 CMP, serum or plasm a potassium 4.5 mmol/ L 3.5-5. 1 Not Available [address], [address], 08/18/2015 08:28:35 08/16/19 16 08/18/2015 CMP, serum or plasm a chloride 100 mmol/ L 96-107 Not Available [address], [address], 08/18/2015 08:28:35 08/16/19 16 08/18/2015 CMP, serum or plasm a anion gap 8.1 5.0-15 .0 Not Available [address], [address], 08/18/2015 08:28:35 08/16/19 16 08/18/2015 CMP, serum or plasm a CO2 31 mmol/ L 21-32 Not Available [address], [address], 08/18/2015 08:28:35 08/16/19 16 08/18/2015 CMP, serum or plasm a calcium 8.8 mg/dL 8.5-10 .3 Not Available [address], [address], 08/18/2015 08:28:35 08/16/19 16 08/18/2015 CMP, serum or plasm a total protein 7.3 g/dL 6.4-8. 2 Not Available [address], [address], 08/18/2015 08:28:35 08/16/19 16 08/18/2015 CMP, serum or plasm a albumin 4.0 g/dL 3.4-5. 0 Not Available [address], [address], 08/18/2015 08:28:35 08/16/19 16 08/18/2015 CMP, serum or plasm a globulin 3.3 g/dL Not Available [address], [address], 08/18/2015 08:28:35 08/16/19 16 08/18/2015 CMP, serum or plasm a A/G 1.2 ratio 0.8-2. 0 Not Available [address], [address], 08/18/2015 08:28:35 08/16/19 16 08/18/2015 CMP, serum or plasm a total bilirubin 0.50 mg/dL 0.00-1 .00 Not Available [address], [address], 08/18/2015 08:28:35 08/16/19 16 08/18/2015 CMP, serum or plasm a AST 20 U/L 15-37 Not Available [address], [address], 08/18/2015 08:28:35 08/16/19 16 08/18/2015 CMP, serum or plasm a ALT 24 U/L 30-65 low Not Available [address], [address], 08/18/2015 08:28:35 08/16/19 16 08/18/2015 CMP, serum or plasm a alk. phos. 49 U/L 50-136 low Not Available [address], [address], 08/18/2015 08:28:35 08/16/19 16 08/18/2015 CBC WBC 5.5 K/? ? ?L 4.0-10 .0 Not Available [address], [address], 08/18/2015 10:43:33 08/16/19 16 08/18/2015 CBC RBC 5.19 M/? ? ?L 3.93-5 .22 Not Available [address], [address], 08/18/2015 10:43:33 08/16/19 16 08/18/2015 CBC HGB 14.9 g/dL 11.2-1 5.7 Not Available [address], [address], 08/18/2015 10:43:33 08/16/19 16 08/18/2015 CBC HCT 44.1 % 34.1-4 4.9 Not Available [address], [address], 08/18/2015 10:43:33 08/16/19 16 08/18/2015 CBC MCV 85.0 ? ? ?L 79.4-9 4.8 Not Available [address], [address], 08/18/2015 10:43:33 08/16/19 16 08/18/2015 CBC MCH 28.7 pg 25.6-3 2.2 Not Available [address], [address], 08/18/2015 10:43:33 08/16/19 16 08/18/2015 CBC MCHC 33.8 g/dL 32.2-3 5.5 Not Available [address], [address], 08/18/2015 10:43:33 08/16/19 16 08/18/2015 CBC plt 189.0 K/? ? ?L 182.0- 369.0 Not Available [address], [address], 08/18/2015 10:43:33 08/16/19 16 08/18/2015 CBC MPV 11.3 9.4-12 .3 Not Available [address], [address], 08/18/2015 10:43:33 08/16/19 16 08/18/2015 CBC neut% 72.7 % 34.0-7 1.1 high Not Available [address], [address], 08/18/2015 10:43:33 08/16/19 16 08/18/2015 CBC neut# 4.0 1.6-6. 1 Not Available [address], [address], 08/18/2015 10:43:33 08/16/19 16 08/18/2015 CBC lymph % 17.6 % 19.3-5 1.7 low Not Available [address], [address], 08/18/2015 10:43:33 08/16/19 16 08/18/2015 CBC lymph # 1.0 K/? ? ?L 1.2-3. 7 low Not Available [address], [address], 08/18/2015 10:43:33 08/16/19 16 08/18/2015 CBC mono% 8.2 % 4.7-12 .5 Not Available [address], [address], 08/18/2015 10:43:33 08/16/19 16 08/18/2015 CBC mono# 0.5 0.2-0. 4 high Not Available [address], [address], 08/18/2015 10:43:33 08/16/19 16 08/18/2015 CBC eo% 1.1 % 0.7-5. 8 Not Available [address], [address], 08/18/2015 10:43:33 08/16/19 16 08/18/2015 CBC eo# 0.1 0.0-0. 4 Not Available [address], [address], 08/18/2015 10:43:33 08/16/19 16 08/18/2015 CBC baso% 0.4 % 0.1-1. 2 Not Available [address], [address], 08/18/2015 10:43:33 08/16/19 16 08/18/2015 CBC baso# 0.0 0.0-0. 1 low Not Available [address], [address], 08/18/2015 10:43:33 08/16/19 16 08/18/2015 CBC RDW-CV 11.8 % 11.7-1 4.4 Not Available [address], [address], 08/18/2015 10:43:33 09/19/19 16 09/19/2015 pap, LB results Patie nt Name: ZELDA JOYNER : 1984 (Age: 30) Lab Acces chase #: [id number] Colle ction Date: 2015 Acces chase Date: 2015 Sign Out Date: 2015 Tissu e Sourc e: 1: THINP REP POWER CRANE OPERATOR PAP TEST, CERVI YOSHI: Final Diagn osis: NEGAT KALEB FOR INTRA EPITH ELIAL LESIO N OR MARIE CAMACHOCY . Shift in glo sugge stive of bacte rial vagin osis. Satis facto ry for evalu ation . Endoc ervic al/tr ansfo rmati on zone ABSEN T. Clini yoshi Histo ry: Date of Last Menst rual Perio d: not avail able Menst rual Histo ry: not avail able Contr acept kaleb Histo ry: not avail able Ancil umberto Testi ng: HPV(A SCUS) any age, order ed on curre nt speci men: LGSIL Case image d by the ThinP rep Imagi ng Syste m with fransisco bruner or keshav kathleen. Perfo rmed at [facility] ate Refer ence [facility] Cytol ogy, [address] [place] Clini yoshi Histo ry (othe r): Z12.4 Prima ry Patho logis t: Phone #: [phone], On-Ca ll Patho logis t: [id number] Not Available [facility] (Centralized Electronic Ordering - All Locations) Patient Can Go To The Location Of Their Choice, [address] 09/24/2015 14:36:09 Result Notes None recorded. Problems Name Problem SNOMED Code Status Onset Date Resolution Date Notes Provider Name and Address Organization Details Recorded Time Allergic rhinitis 98496326 Active Alysha Juárez, NUTRITION DIRECTOR-C [address] [place] [address], [phone] , [facility] 6 10:34:08 Nausea 573769168 Active Alysha GILDA Juárez-C [address] [place] [address], [phone] , [facility] 6 10:05:29 Eczema 16543571 Active Alysha GILDA Juárez-C [address] [place] [address], [address] , [facility] 6 10:34:08 Bacterial vaginosis 342086180 Active AlyshaRAMON Hinojosa [address] [place] [address], [address] , [facility] 6 12:50:55 Headache 14716627 Active 2005 Not Available [facility] 3 03:13:38 Neoplasm of uncertain behavior of skin 01315351 Completed 200605/23/2013 Not Available [facility] 3 02:01:52 Contusion of face, scalp and neck, excluding eye(s) Completed 200605/23/2013 Not Available [facility] 3 02:04:11 Knee pain Completed 200505/23/2013 Not Available [facility] 3 02:00:42 Temporoman dibular joint disorder 36951868 Active Not Available [facility] 3 03:13:38 Pain of shoulder region 57629558 Completed 05/23/2013 Not Available [facility] 3 02:01:02 General symptom 105924144 Completed 200605/23/2013 Not Available [facility] 3 02:04:00 Myopia 64506688 Active 2005 Not Available [facility] 3 03:13:38 Lipoma 60141757 Completed 200605/23/2013 Not Available [facility] 3 02:04:02 Lymphadeno amara 01866081 Completed 200605/23/2013 Not Available [facility] 3 02:03:13 Mycosis 4611722 Active 2006 Not Available [facility] 3 03:13:38 Amenorrhea 52188778 Active 2007 Not Available [facility] 3 03:13:38 Problem, abnormal test 30928292 Active 2006 Not Available [facility] 3 03:13:38 Malaise and fatigue 145669117 Completed 200605/23/2013 Not Available [facility] 3 02:00:20 Problem Notes None recorded. Medical Equipment None Reported. Allergies No known drug allergies Medications Name Sig Start Date Stop Date Status Note LastModified by Organization Details LastModified Time amoxicill in 500 mg capsule active Not Available Not Available Not Available Mirena 21 mcg/24 hr (up to 8 years) 52 mg intrauter ine device 2009 active implante d 09/2009 - [facility] Not Available Not Available Not Available doxycycli ne hyclate 100 mg capsule Take 1 capsule twice a day by oral route for 30 days. 06/13 completed Not Available Not Available Not Available ibuprofen 800 mg tablet Take 1 tablet 3 times a day by oral route with meals for 10 days. 09/19 completed Not Available Not Available Not Available permethri n 5 % topical cream APPLY (THOROUG HLY MASSAGE INTO SKIN FROM HEAD TO SOLES OF FEET) BY TOPICAL ROUTE ONCE LEAVE ON FOR 8-14 HR, THEN REMOVE BY THOROUGH WASHING active Not Available Not Available No t Available penicilli n V potassium 500 mg tablet TK 2 TS PO NOW AND THEN 1 T PO Q 6 H UNTIL FINISHED 09/01 completed Not Available Not Available Not Available meclizine 12.5 mg tablet Take 1/2 -1 tablet(s ) up to 3 times a day by oral route for 10 days. 09/18 completed Not Available Not Available Not Available metronida zole 500 mg tablet TK 1 T PO Q 12 H TAT 05/24 completed Not Available Not Available Not Available tetracycl ine 250 mg capsule Take 1 capsule twice a day by oral route. 2011 active Not Available Not Available Not Avai lable alprazola m 0.5 mg tablet Take 1 tablet 3 times a day by oral route as needed. 2012 active Not Available Not Available Not Avai lable citalopra m 20 mg tablet Take 0.5 mg daily x 1 week then increase 1 tablet daily active Not Available Not Available No t Available doxycycli ne monohydra te 100 mg capsule TK ONE C PO BID active Not Available Not Available No t Available triamcino lone acetonide 0.025 % topical ointment APPLY A THIN LAYER AA BID PRN active Not Available Not Available No t Available Polytrim 10,000 unit-1 mg/mL eye drops Instill 1 drop every 3 hours by ophthalm ic route in affected eye(s) up to 6x/day x 7-10 days.. 2012 active Not Available Not Available Not Avai lable fluticaso ne propionat e 50 mcg/actua tion nasal spray,remigio pension Use 1 spray to each nostril BID active Not Available Not Available No t Available clindamyc in phosphate 1 % topical solution Apply a thin layer to the affected area(s) by topical route 2 times per day active Not Available Not Available No t Available Zyrtec Take 1.00 tabs PRN active Not Available Not Available No t Available ProAir HFA 90 mcg/actua tion aerosol inhaler Inhale 2 puffs 4 times a day by inhalati on route as needed. active Not Available Not Available No t Available Vitals Date Recorded Body height Body mass index (BMI) Body weight Heart rate Oxygen saturation Oxygen saturation in Arterial blood by Pulse oximetry Body temperature Systolic blood pressure Diastolic blood pressure Provider Name and Address Organization Details Last Updated DateTime 7 160.02 cm 30.6 kg/m2 48972.4 8 g 76 /min 99 % 99 % 98.8 [degF] 120 mm[Hg] 70 mm[Hg] Lydia Harvey MA [facility] 7 16:34:33 Date Recorded Body height Provider Name an d Address Organization Details Last Updated DateTime 08/29/2017 160.02 cm Maite Schwartz MA [facility] 08/29/2017 09:27:09 Date Recorded Body mass index (BMI) Body weight Body temperature Heart rate Oxygen saturation Oxygen saturation in Arterial blood by Pulse oximetry Systolic blood pressure Diastolic blood pressure Provider Name and Address Organization Details Last Updated DateTime 8 31 kg/m2 72582.6 6 g 98 [degF] 66 /min 99 % 99 % 120 mm[Hg] 82 mm[Hg] YIFAN Frey [address] [place] [address] [place], [address] [place] [address] 8 09:36:38 Date Recorded Body height Body mass index (BMI) Body temperature Body weight Oxygen saturation Oxygen saturation in Arterial blood by Pulse oximetry Heart rate Systolic blood pressure Diastolic blood pressure Provider Name and Address Organization Details Last Updated DateTime 6 161.925 cm 27.7 kg/m2 98.7 [degF] 85648.7 792 g 98 % 98 % 87 /min 140 mm[Hg] 90 mm[Hg] Amanda [facility] 6 17:17:03 Date Recorded Body weight Body height Body mass index (BMI) Heart rate Systolic blood pressure Diastolic blood pressure Provider Name and Address Organization Details Last Updated DateTime 6 92243.3 7157 g 160.02 cm 28.5 kg/m2 86 /min 120 mm[Hg] 78 mm[Hg] Araceli Jessica [facility] 6 09:50:04 Date Recorded Body height Body weight Body mass index (BMI) Heart rate Body temperature Systolic blood pressure Diastolic blood pressure Provider Name and Address Organization Details Last Updated DateTime 6 160.02 cm 65567.0 7 g 30.8 kg/m2 76 /min 98.5 [degF] 128 mm[Hg] 96 mm[Hg] Cornelius Angeles MA [facility] 6 16:44:58 Social History Question Answer Notes LastModified by Organizat ion Details LastModified Time Tobacco Smoking Status Never Smoker Not Available [facility] 05/20/2011 04:52:19 Do You Have An Advance Directive? No Information not available 07/13/2011 What Is Your Level Of Alcohol Consumption? Occasional Information not available 07/18/2012 Do You Wear A Helmet When Biking? Yes Information not available 09/04/2013 Are You Blind Or Do You Have Difficulty Seeing? No Information not available 09/04/2013 What Is Your Level Of Caffeine Consumption? Moderate 2 - 3 Cups Of Coffee A Day Information not available 07/13/2011 How Much Tobacco Do You Chew? None [email or web address] Information not available 05/20/2011 Are You Deaf Or Do You Have Serious Difficulty Hearing? No Information not available 09/04/2013 What Type Of Diet Are You Following? REGULAR Information not available 07/13/2011 Which Illicit Or Recreational Drugs Have You Used? None [email or web address] Information not available 05/20/2011 Education 12 [employer] School Information not available 07/13/2011 What Is Your Occupation? [employer] Information not available 07/13/2011 How Many Days In The Past Year Have You Had A Heavy Drinking Consumption (4+ Female, 5+ Male)? 0 Information not available 07/27/2012 Are There Any Guns Present In Your Home? No Information not available 07/13/2011 Live Alone Or With Others? With Others Information not available 07/13/2011 Patient Has Health Care Proxy Signed And In Chart Yes Jerry Smith- Information not available 07/13/2011 Marital Status Marv Smith Information not available 09/04/2013 Mosquito Repellent Used Routinely Yes Information not available 07/13/2011 What Was The Date Of Your Most Recent Tobacco Screening? 08/29/2017 Information not available 01/24/2019 How Many Children Do You Have? 1 07/27/09 - Wallace tilley Information not available 07/10/2009 Seat Belts Used Routinely Yes Information not available 07/13/2011 Are You Sexually Active? Yes Information not available 07/27/2012 Smoke Alarm In Home Yes Information not available 07/13/2011 What Types Of Sporting Activities Do You Participate In? Running Information not available 09/04/2013 General Stress Level Medium Information not available 07/13/2011 Do You Use Sunscreen Routinely? Yes Information not available 07/13/2011 Sex: Unknown Functional Status Question Answer Note LastModified by Organization D etails LastModified Time Do you have difficulty walking or climbing stairs? No Information not available 09/04/2013 Do you have difficulty doing errands alone? No Information not available 09/04/2013 Do you have difficulty dressing or bathing? No Information not available 09/04/2013 Mental Status Question Answer Note LastModified by Organization D etails LastModified Time Do you have difficulty concentrating, remembering or making decisions? No [facility] Information no t available 09/04/2013 Family History Relationship Description Onset Age of this Age Resolved Age Notes LastModified by Organization Details LastModified Time Mother Hypertensive disorder ndoubleday Not available 09/18 10:03:11 Father Hyperlipidem ia ndoubleday Not available 09/18 10:03:11 Father Hypertensive disorder ndoubleday Not available 09/18 10:03:11 Brother Well male adult older ndoubleday Not available 09/18 10:03:11 Sister Tobacco dependence syndrome ndoubleday Not available 09/18 10:03:11 Maternal Grandmother Heart disease 86 ndoubleday Not available 09/18 10:03:11 Maternal Grandmother Malignant neoplastic disease 86 not sure if this was actual cause of ndoubleday Not available 09/19/2015 10:03:11 Maternal Grandfather Myocardial infarction ndoubleday Not available 09/01 10:03:11 Maternal Grandfather Alcoholism ndoubleday Not available 09/19/2015 10:03:11 Maternal Grandfather of unknown cause ndoubleday Not available 09/18 10:03:11 Paternal Grandmother Myocardial infarction 89 ndoubleday Not available 09/01 10:03:11 Paternal Grandfather Myocardial infarction ndoubleday Not available 09/01 10:03:11 Paternal Grandfather of unknown cause ndoubleday Not available 09/18 10:03:11 Medical History Condition Response Coronary Artery Disease N Gout N Thyroid Disease N Atrial Fibrillation N Macular Degeneration N Leukemia N Colon Cancer N Kidney Stones N Breast Cancer N Erectile Dysfunction N Menopausal Symptoms N Alzheimers Dementia N Lung Cancer N COPD N Depression N Glaucoma N Hyperthyroid N Incontinence N Pacemaker N Migraine Headaches N Congestive Heart Failure N Deep Vein Thrombosis N Alcoholism N Psychiatric Disorders N Venous Insuffiency N Hearing Loss N Diverticulosis N acne Y Heart Valve Replacement N Stroke N Crohn's Disease N Benign Prostatic Hypertrophy N GERD N Skin Cancer N Skin Disease N Rheumatoid Arthritis N Schizophrenia N CANCER N Fibromyalgia N Chronic Vaginitis N Pulmonary Embolus N Suicide Attempt N Kidney Disease N Chronic Cough N Osteoarthritis N Anxiety Y Parkinson's Disease N Chronic Neck Pain N Prostate Cancer N GASTROINTESTINAL N Peptic Ulcer Disease N Anemia N Constipation N Colon Polyps N Rheumatic Fever N Cataracts N Bleeding Disorder N Hypothyroid N Tuberculosis N Myocardial Infarction N Hyperlipidemia N Valvular Heart Disease N Allergies N Asthma N Chronic Back Pain N Polycystic Ovary Syndrome N Diabetes Type II N Substance Abuse N Seizures N Peripheral Vascular Disease N Bipolar Disorder N Abnormal Pap N Sleep Apnea N Diabetes Type I N Heart Disease N Hypertension N Osteoporosis N Gynecological History Statement/Question Response Date of LMP 09/12/2015 Frequency of Cycle (Q days) Menses Monthly N HPV N History of Abnormal Pap Y Current Control Method IUD Approximate Obstetrics History GPAL:G 0 P 0 0 0 0 Immunizations Vaccine Type Date Status Note Provider Nam e and Address Organization Details Recorded Time Tdap 02/03/2007 completed Not Available [facility] 05/19/2011 05:21:55 Past Encounters Encounter ID Performer Location Encounter Start Date Encounter Closed Date Diagnosis/Indication Diagnosis SNOMED-CT Code Diagnosis ICD10 Code Diagnosis Note [id number] Alicia Connor MD , [facility], OFFICE [address] [facility] [place] [address] 11/09/2005 15:14:54 11/09/2005 18:01:02 [id number] [facility], [address] [place] [address] 11/23/2005 17:23:29 11/24/2005 06:48:58 [id number] Mark Michelle OD [facility], [address] [place] [address] 01/28/2006 16:22:30 07/24/2008 02:02:29 [id number] Alicia Connor MD , [facility], OFFICE [address] [facility] [place] [address] 07/08/2006 07:33:48 07/08/2006 13:23:34 [id number] [facility] - [address] [place] [address] 07/08/2006 08:22:31 07/08/2006 08:22:40 [id number] MD ASTRID Louis, [facility], OFFICE [address] [place] [address] [place] [address] 08/12/2006 10:43:42 08/12/2006 13:24:46 [id number] [facility] - [facility] [place] [address] 08/13/2006 17:35:29 07/24/2008 02:02:29 [id number] Nataliya Bro PA-C , [facility], OFFICE [address] [place] [address] 11/22/2006 07:52:59 11/22/2006 13:37:37 [id number] Liliya Reaves MD , [facility], OFFICE [address] [place] [address] 02/03/2007 09:19:09 02/03/2007 13:28:54 [id number] [facility] NURSE [facility], OFFICE [address] [place] [address] 02/06/2007 13:15:28 02/06/2007 16:13:21 [id number] [facility] - [facility] [place] [address] 02/06/2007 09:05:50 02/06/2007 09:05:53 [id number] Alicia Connor MD , [facility], OFFICE [address] [place] [address] 05/19/2007 14:06:36 07/24/2008 02:02:29 [id number] Liliya Reaves MD , [facility], OFFICE [address] [place] [address] 11/22/2007 16:10:35 07/24/2008 02:02:29 [id number] [facility] - [facility] [place] [address] 11/23/2007 12:43:34 11/23/2007 12:43:45 [id number] Liliya Reaves MD , [facility], OFFICE [address] [place] [id number] 05/09/2008 08:38:58 07/24/2008 02:02:29 [id number] Maria Del Rosario Escobar MD , [facility], OFFICE [address] [place] [address] 09/09/2008 11:02:44 09/10/2008 09:16:18 [id number] MD ASTRID Morrison, [facility], OFFICE [address] [place], [place] [address] 11/05/2008 13:50:49 11/07/2008 12:53:14 [id number] [facility] - [facility] [address], [place] [address] 11/05/2008 15:06:09 11/05/2008 15:06:20 [id number] Marlen Mnejivar MD , [facility], OFFICE [address], [place] [id number] 07/10/2009 09:32:16 07/11/2009 08:07:12 [id number] KARTHIKEYAN Jo, [facility], OFFICE [address] [place], [place] [id number] 06/16/2010 17:11:19 06/17/2010 08:24:17 [id number] KARTHIKEYAN Rachel, [facility], OFFICE [address], [place] [id number] 10/26/2010 08:18:34 10/26/2010 11:34:04 [id number] KARTHIKEYAN Rachel, [facility], OFFICE [address] [place], [place] [address] 02/03/2011 08:44:23 02/03/2011 09:18:56 [id number] KARTHIKEYAN Rachel, [facility], OFFICE [address], [place] [address] 07/13/2011 09:00:27 07/14/2011 08:03:24 [id number] KARTHIKEYAN Rachel, [facility], OFFICE [address] [place], [place] [id number] 09/29/2011 07:45:44 09/29/2011 09:16:38 [id number] Josefina Mcbride, PT Physical Therapy, [address] [place], [place] [address] 10/05/2011 07:22:47 10/06/2011 08:40:55 [id number] Josefina Mcbride, PT Physical Therapy, [address] [place], [place] [address] 1 10/07/2011 07:28:32 10/12/2011 15:31:19 [id number] Josefina Mcbride, PT Physical Therapy, [address] [place], [place] [address] 10/12/2011 07:26:04 10/15/2011 08:49:48 [id number] Josefina Mcbride, PT Physical Therapy, [place] [address] [address], [place] [address] 10/14/2011 14:29:35 10/15/2011 09:05:26 [id number] Josefina Mcbride, PT Physical Therapy, [address] [place], [place] [address] 10/19/2011 07:30:32 10/21/2011 08:30:05 [id number] Josefina Mcbride, PT Physical Therapy, [address] [place], [place] [id number] 10/21/2011 14:56:19 10/22/2011 15:40:33 [id number] Cyn Gramajo MD , [facility], OFFICE [address] [place] [address] [place], [place] [address] 1 06/13/2012 13:14:54 06/13/2012 14:03:13 [id number] Josefina Mcbride, PT Physical Therapy, [address] [place], [place] [id number] 07/03/2012 14:28:40 07/03/2012 16:25:03 [id number] Cyn Gramajo MD , [facility], OFFICE [address] [place] [address] [place], [place] [id number] 1 07/18/2012 13:55:23 07/19/2012 08:19:22 [id number] Renu Vale MD , [facility], OFFICE [address] [place] [address] [place], [place] [id number] 1 07/27/2012 08:37:48 07/27/2012 09:58:50 [id number] Edilberto Noyola MD Radiology , [address] [place], [place] [id number] 07/28/2012 13:50:01 07/31/2012 13:48:09 [id number] Renu Vale MD , [facility], OFFICE [address] [place] [address] [place], [place] [address] 09/04/2013 08:02:57 09/04/2013 09:43:50 Adult health examination [id number] see Risk Assessment and Lifestyle Change Counseling section above Counseling [id number] Allergic rhinitis [id number] Screening for malignant neoplasm of cervix [id number] Anxiety 20796362 Overweight 454316037 IUD threads lost [id number] String not visible, u/s performed last year showed IUD correctly positioned in the uterus, prefers not to repeat u/s now due to cost, recommend f/u with [facility] next year for IUD removal and reinsertio n if desired [id number] Sal Aguilar MD , [facility], OFFICE [address] [place] [address] 04/01/2014 08:48:53 04/02/2014 08:00:36 Coxsackie virus disease [id number] CLinical dx, lakeisha w/ son with same. Out of work til hand lesions resolve [id number] RAMON Peralta , [facility], OFFICE [address] [place] [address] 08/15/2015 17:01:20 08/15/2015 17:44:19 Nausea [id number] R11.0 more than likely a viral illness no temps/feve rs/chills PID? unlikely [id number] RAMON Peralta , [facility], OFFICE [address] [place] [address] 09/19/2015 09:38:36 09/19/2015 11:06:38 Screening for malignant neoplasm of cervix 657799665 Z12.4 Eczema 93286435 L30.9 Counseling 366324102 Z71 .9 Adult heal th examination 581541327 Z00.00 Allergic rhinitis 207872 04 J30.9 yvrose works when she uses [id number] Benjamin Hernandez MD , [facility], OFFICE [address] [place] [address] 05/24/2016 15:51:59 05/24/2016 16:59:28 Conjunctivitis 9616085 H10.9 Discussed etiologies and diagnosis of conjunctiv itis. Based on history and exam, most likely etiology is viral. Suggest cool compresses . Natural history involves bilaterali ty in many cases after first 1-2 days and spontaneou s resolution in 3-5 days. Report eye pain, altered visual acuity, headache, or nausea/vom iting. Decrease contagion by avoiding toughing eye and wash hands frequently . Avoid sharing shower with others as virus can be passed via droplets. [id number] Lupe Cruz MD , [facility], OFFICE [address] [facility] [place] [address] 01/24/2017 16:09:44 01/24/2017 17:50:21 Insect bite to leg - nonvenomous 159770549 S80.869A Areas on lower legs appear like mosquito or insect bites. Continue OTC treatment. Infestatio n by Sarcoptes scabiei richard hominis [id number] B86 Bilateral hands interdigit al. Will treat and discussed home care and spread prevention . [id number] Cyn Gramajo MD , [facility], OFFICE [address] [facility] [place] [address] 08/29/2017 09:23:18 08/29/2017 10:42:19 Costal chondritis 05881371 M94.0 A: Right costal condritis in setting of cough x 2 months; wearing underwire brasNot taking ibuprofen consistent ly.Symptom s worse with coughing or sneezing. P: See below for treating cough; stop wearing underwire bras for now; ibuprofen 400 mg q 6 hours with food; ice pack 15 minutes 2-3 times daily to affected area. Cough 47147810 R05 A: cough persisting for 2 months; denies shortness of breath, ear pain; throat pain.No GERD or abdominal painDenies shortness of breath or wheeze. Cough started 2 months ago with cold like sypmtoms : runny nose, throat pain.8 year old son also had a cough 1 month ago.Nyquil helps a littleMild runny noseLungs clear on exam today P: Robitussin for cough. History of allergic rhintis; not taking zyrtec at this time; advise to start trial of flonase for possible post nasal drip cough; if flonase and robitussin do not help, then stop both and start zyrtec. Health Concerns Section Related Observation LastModified by Organization Detai ls LastModified Time None Recorded Concern Status LastModified by Organization Details LastModified Time None Recorded Advance Directives Directive N: Payers Encounter Date Sequence Insurance Name Policy Number Policy Church Covered Member ID Church Member ID Guarantor Name 08/15/2015 1 [place] [id number] Zelda Smith [id number] [facility] 09/19/2015 1 [place] [id number] Zelda Smith [id number] [facility] 05/24/2016 1 [place] [id number] Zelda Smith [id number] [facility] 01/24/2017 [place] [facility] [id number] Jerry Graves Sarah [id number] [facility] 08/29/2017 1 [place] [facility] [id number] Jerry C Sarah [id number] [facility] Notes Date Note Type Note Provider Name and Address Organization Details Recorded Time 6 text/html onset was tuesday coughing up yellow to clear and from nose headachey, sneezing cough sicne tuesday between tuesday and too hot too cold no sob worse symptom is her lack of appetite this morning she had scrambled eggs and felt nauseous and feels like she is constipated but is not her last BM was this afternoon and soft and not much Alysha Juárez, NUTRITION DIRECTOR-C [address] [place] [address], [phone], [facility] 08/19/2015 10:05:31 6 text/html Physical Exam/FemaleReported bypatient.PHAPatient is here for a Personal Health Appraisal. She describes her health status as good. Patient's health is worse than last year.Risk Assessment and Lifestyle Change Counseling-female 27-39Reported bypatient.Coronary Artery Disease Risk Assesment:Family History of Coronary Artery Disease;Does not participate in regular exercise program;Not eating a diet low in fat and high in fiber; No personal history of hypertension; Lipids in good range; No personal history of diabetes; No use of tobacco; No history of peripheral vascular disease, AAA, or carotid disease; No personal history of coronary artery disease; Patient has low risk for coronary artery disease; [place] 10 year cardiac risk ; Grandmothers had heart disease, walks once a week, eats out a lot Breast Cancer Risk Assessment:No family history of breast cancer; No history of breast cancer or dcis; Menarche: age greater than 12; Has been to term; No history of female hormone exposure; Patient has low risk for breast cancer Cervical Cancer Risk Assessment:No abnormal pap smears; No evidence of HPV infection; Monogamous; Patient has low risk for cervical cancer Lung Cancer Risk Assessment:Never smoked; No asbestos exposure; Patient has low risk for lung cancer Risk for Sexually transmitted disease Assessment:No history of sexually transmitted disease; Monogamous relationship; Patient has low risk for sexually transmitted disease Cognitive/Behavioral Risk Assessment:Personal history of depression;Family history of depression Safety Risk Assessment:Uses helmet for high velocity activities; Uses seat belts; No evidence of abuse/neglect Diet:Counseled about appropriate portion size; Discussed the value of a Mediterranean diet, and eating more fruits and vegetables; was Paleo last year, sugar is her weakness, no processed foods Exercise counseling:Discussed the importance of daily physical activity Safety:Counseled about protecting skin from the sun and lowering the risk of skin cancer; Counseled about home safety including use of smoke detectors, CO detectors, keeping home water temperature less than 120; Counseled about use of seat belts Family Planning:Using control IUD Control:Mirena, working well, menses irregular, light flow with some cramping Emergency Department and Urgent Care:Counseled about appropriate use of the emergency room and availability of urgent care at [facility] RAMON Peralta [address] [place] [address], [phone], [facility] 09/19/2015 10:34:31 6 text/html [facility] ConjunctivitisReported bypatient.Locationsymptoms in right eye Course of OnsetSymptoms for 1 days Descriptive features:discharge or crusting of eye(s);eye(s) watering / discharge; No pain in the eyes;Eyelids are swollen and tender(resolved);Conjunctiv al injection Associated Symptoms:started with URINotes:Used son's gentamicin drops this AM x 2. No contact lenses. Benjamin Hernandez MD [address] [place] [address], [phone], [facility] 05/24/2016 17:06:41 7 text/html VMG RashReported bypatient.Location:generali zed; arms; legs; feet Quality:not painful;itchy Severity:mild Duration:has noted for (8 days) Onset/Timing:gradual onset Context:no new medications; no new detergents or skin products; No known tick bite; No increased sun exposure; no one else with similar rash; No increased scratching;Environmental contact with plants;Environmental exposure to animals or animal dander(insects) Aggravating factors:nothing makes it worse Alleviating factors:Triamcinolone ointment seems to be helping. Associated Symptoms:No fever; No cold symptoms; No nausea; No vomiting; No diarrhea; No urinary symptoms; No lip, mouth or throat swelling; No sore throat; No shortness of breath; No generalized edema WILLIE Bowen [address] [place] [address], [phone], [facility] 01/24/2017 16:47:59 8 text/html 32 year old female patient presents for evaluation of rib pain for the past week. Has been coughing off and on for the past 2 months. Denies shortness of breath.Works for [employer].No heartburnDenies ear pain, throat pain. Sometimes has coughing fits.Pain to right lower ribs.Denies abdominal pain.Wears underwire bras. Due for a wellness visit 09/2017 Saumya Henao D.O. [address] [place] [address], [phone], [facility] 08/29/2017 10:28:56 OBGyn Episode No OBEpisode recorded.
[2024-11-07 10:28] LABS: Hematocrit 43.2 % (42.0-52.0); Hemoglobin 14.3 g/dl (14.0-18.0); Mean Corpuscular HGB Conc 33.1 g/dl (31.0-36.0); Mean Corpuscular Hemoglobin 27.3 pg (27.0-33.0); Mean Corpuscular Volume 82.6 fL (80.0-98.0); Mean Platelet Volume 9.9 fL (9.4-12.4); Platelet Count 275 X10*3/uL (160-400); Red Blood Count 5.23 X10*6/uL (4.60-5.80); Red Cell Distribution Width 12.3 % (11.0-16.0); White Blood Count 8.1 X10*3/uL (4.8-10.8)
[2024-11-07 11:03] LABS: Rheumatoid Factor < 13.0 IU/mL (<15.0)
[2024-11-07 11:12] LABS: Erythrocyte Sedimentation Rate 14 MM/HR (0-15)
[2024-11-07 11:15] LABS: Alanine Aminotransferase 31 U/L (0-40); Albumin Level 4.1 g/dL (3.5-5.0); Alkaline Phosphatase 49 U/L (39-117); Anion Gap 10 (12-20); Aspartate Amino Transferase 21 U/L (5-37); Bilirubin Total 0.5 mg/dL (0.0-1.0); Blood Urea Nitrogen 14 mg/dL (9-16); Calcium 9.1 mg/dL (8.4-10.2); Carbon Dioxide 25 mmol/L (22-29); Chloride 106 mmol/L (96-108); Cholesterol 153 mg/dL (<200); Estimated Glomerular Filt Rate > 60; Ferritin 72 ng/mL (20-250); Glucose Random 96 mg/dL (60-115); HDL Cholesterol 36 mg/dL (>40); Iron 96 mcg/dL (45-160); LDL Cholesterol Calculated 94 mg/dL (<100); Percent Iron Saturation 38 % (15-50); Potassium 4.2 mmol/L (3.3-5.1); Sodium 137 mmol/L (135-145); TSH reflex Free T4 1.36 uIU/mL (0.32-4.0); Total Iron Binding Capacity 252 mcg/dL (228-428); Total Protein 7.3 g/dL (6.5-8.0); Triglycerides 115 mg/dL (<150); Unsaturated Iron Binding 156 ug/dL
[2024-11-07 11:40] LABS: Vitamin B12 520 pg/mL (200-900)
[2024-11-08 10:53] LABS: Prot Elec - Alpha1 0.3 g/dL (0.2-0.3); Prot Elec - Alpha2 0.6 g/dL (0.5-0.9); Prot Elec - Beta 1 0.4 g/dL (0.4-0.6); Prot Elec - Beta 2 0.3 g/dL (0.2-0.5); Prot Elec - Gamma 1.5 g/dL (0.8-1.7)
[2024-11-08 11:13] LABS: Lyme Blot >10.00 index
[2024-11-08 12:50] LABS: Lyme Abs Screen POSITIVE
[2024-11-09 11:33] LABS: IgA 294 mg/dL (47-310); IgG 1550 mg/dL (600-1640); IgM 153 mg/dL (50-300)
[2024-11-09 11:48] LABS: ANA Pattern 3 Nuclear, Homogeneous; ANA Titer 2 1:40 titer; ANA Titer 3 1:40 titer; Anti Nuclear Antibody Pattern Nuclear, Speckled; Anti Nuclear Antibody Screen POSITIVE (NEGATIVE)
[2024-11-09 20:19] LABS: 18 KD (IgG) Band REACTIVE; 23 KD (IgG) Band NON-REACTIVE; 23 KD (IgM) Band REACTIVE; 28 KD (IgG) Band REACTIVE; 30 KD (IgG) Band REACTIVE; 39 KD (IgM) Band NON-REACTIVE; 39KD (IgG) Band REACTIVE; 41 KD (IgM) Band NON-REACTIVE; 41KD (IgG) Band REACTIVE; 45 KD (IgG) Band REACTIVE; 58 KD (IgG) Band REACTIVE; 66 KD (IgG) Band REACTIVE; 93 KD (IgG) Band REACTIVE; Lyme IgG Blot Interp POSITIVE (NEGATIVE); Lyme IgM Blot Interp NEGATIVE (NEGATIVE)
[2024-11-11 16:02] LABS: Vitamin D 25-OH, D2 <4 ng/mL; Vitamin D 25-OH, D3 31 ng/mL; Vitamin D 25-OH, Total 31 ng/mL (30-100)
[2024-11-12 16:14] LABS: Kappa, Serum 293 mg/dL (176-443); Kappa/Lambda Ratio, Serum 1.44 (1.29-2.55); Lambda, Serum 204 mg/dL (91-240)
== END 2024-11-07 09:01 | disposition home or self-care (01) ==
LOC: HO.XRAY 09:00
PROVIDERS: PCP Physician Assistant Medical; Visit Provider Physician Assistant Medical
DX: M25.50 Pain in unspecified joint (principal); R77.8 Other specified abnormalities of plasma proteins; R79.9 Abnormal finding of blood chemistry, unspecified; Z91.89 Other specified personal risk factors, not elsewhere classified; Z00.00 Encounter for general adult medical examination without abnormal findings; Z13.6 Encounter for screening for cardiovascular disorders; E78.5 Hyperlipidemia, unspecified; M85.80 Other specified disorders of bone density and structure, unspecified site
CPT/HCPCS: 36415; 73030; 73562; 80053; 80061; 82306; 82607; 82728; 82784; 83540; 83883; 84165; 84443; 85027; 85652; 86038; 86039; 86334; 86431; 86617; 86618

== ENCOUNTER → 2024-11-07 09:08 | Outpatient (BNV) | payer BC, SELFPAY | PROVIDERS: PCP Physician Assistant Medical; Visit Provider Radiology Diagnostic Radiology | DX: M25.561 Pain in right knee (principal); M25.562 Pain in left knee; M25.50 Pain in unspecified joint | CPT/HCPCS: 73030; 73562 ==

== ENCOUNTER 2024-12-05 12:59 | Outpatient (AMB) | payer BC, SELFPAY ==
--- OUTSIDE RECORDS SUMMARY | 2024-12-05 13:22 | XMS_ITS | Data Portability ---
Author Organization [facility] Address [address] [place] [address] Care Team Providers Care Sort Supervisor Name Role Phone FLAKITO MOSES Primary Care Provider [phone] ANN FLAKITO Referring Provider [phone] Assessment No assessment recorded. Plan of Treatment Reminders Order Date Submit Date Provider Last Modified By Organization Details Last Modified Time Details Appointments None record ed. Lab pap, LB + HR HPV 2019 020 [facility], [address] [place], [address], 0 08:41:06 Referral None record ed. Procedures None record ed. Surgeries None record ed. Imaging None record ed. Medication Orders cephal exin 500 mg capsul e 2021 022 [id number], [address], [place], [id number], 2 10:21:12 Patient TargetsNo targets recorded. Patient Instructions Encounter Date Encounter Id Patient Instructions Last Modified By Organization Details Last Modified Time 11/26/2014 [id number] Pt doing well. Reviewed effectiveness, precautions. Advised to monitor, call as needed. 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 carrie Not available 11/26/2014 15:15:22 08/21/2019 [id number] Routine counselling regarding periods, pap screening, breast health, sexual health. Communication encouraged. I advised pt I highly doubt IUD is influence on libido. Discussed iud and BTL. Pt wants to continue w IUD. Will schedule removal/replacemen t in September. carrie Not available 08/21/2019 11:11:38 02/28/2020 [id number] Pt doing well wi th IUD. Reviewed effectiveness, precautions. Advised to monitor, call as needed. 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 Reassured breast exam. Advised monitor, report changes to PCP. Ask sister if genetics planned. carrie Not available 02/28/2020 17:12:13 Reason for Referral None Reported. Results Created Date Observation Date Name Description Value Unit Range Abnormal Flag Note LastModifiedBy Organization Detail LastModifiedTime 08/21/19 20 08/27/2019 pap, LB + HR HPV diagnosis: Commen t . normal NEGAT KALEB FOR INTRA EPITH ELIAL LESIO N OR MARIE JOSUE . Not Available [facility] [address] [place] [address], [address], 08/27/2019 14:11:34 08/21/19 20 08/27/2019 pap, LB + HR HPV spec adequacy Commen t . normal Satis facto ry for evalu ation . Endoc ervic al and/o r squam ous metap lasti c cells (endo cervi yoshi compo nent) are prese nt. Not Available [facility] [address] [place] [address], [address], 08/27/2019 14:11:34 08/21/19 20 08/27/2019 pap, LB + HR HPV performed by Rayo t . normal Ginny dunlap, Cytot echmiah ovalles t (ASCP ) Not Available [facility] [address] [place] [address], [address], 08/27/2019 14:11:34 08/21/19 20 08/27/2019 pap, LB + HR HPV . . . normal Not Available [facility] [address] [place] [address], [address], 08/27/2019 14:11:34 08/21/19 20 08/27/2019 pap, LB + HR HPV note Commen t . normal The Pap smear is a scree kieran test desig stuart to aid in the detec tion of yang ligna nt and malig nant condi tions of the uteri ne cervi x. It is not a diagn ostic proce dure and shoul d not be used as the sole means of detec ting cervi yoshi cance r. Both false -posi tive and false -nega tive repor ts do occur . Not Available [facility] [address] [place] [address], [address], 08/27/2019 14:11:34 08/21/19 20 08/27/2019 pap, LB + HR HPV test methodolog Commen t . normal This liqui d based ThinP rep(R ) pap test was scree stuart with the use of an image guide d syste m. Not Available [facility] [address] [place], [address], 08/27/2019 14:11:34 08/21/19 20 08/27/2019 pap, LB + HR HPV HPV aptima Negati ve negati ve normal This nucle ic acid ampli ficat ion test detec ts fourt een high- risk HPV types (16,1 8,31, 33,35 ,39,4 5,51, 52,56 ,58,5 9,66, 68) witho ut diffe renti ation . Perfo rmed at: [facility] [place] [address], [place] [address] Lab Direc tor: Dario harrell MD, Phone : [phone] Perfo rmed at: [facility] [place] [address], [place] [address] Lab Direc tor: Dario harrell MD, Phone : [phone] Not Available [facility] [address] [place], [address], 08/27/2019 14:11:34 Result Notes None recorded. Problems Name Problem SNOMED Code Status Onset Date Resolution Date Notes Provider Name and Address Organization Details Recorded Time No current problems or disability 993009579 Active Jj Morrow MD [address] [place] [address], [phone], [facility] 0 10:44:41 Severe pre-eclamps ia - not delivered 918697036 Completed 08/21/2019 Jj Morrow MD [address] [place], [place] [address], [address], [facility] 0 10:44:37 Severe pre-eclamps ia - delivered 542616879 Completed 08/21/2019 Jj Morrow MD [address] [place], [place] [address] [place], [address], [facility] 0 10:44:34 Transient hypertensio n of - not delivered 823551118 Completed 08/21/2019 Jj Morrow MD [address] [place], [place] [address], [address], [facility] 0 10:44:39 Forceps delivery - delivered 370407366 Completed 08/21/2019 Jj Morrow MD [address] [place], [place] [address], [address], [facility] 0 10:44:27 Mechanical complicatio n of intrauterin e contracepti ve device 760910385 Completed 08/21/2019 Jj Morrow MD [address] [place], [place] [address], [address], [facility] 0 10:44:31 Problem Notes None recorded. Procedures Surgical History Date Name Laterality Status Provider Name and Address Organization Details Recorded Time 12/27/19 20 IUD Insertion completed Jj Morrow MD [address] [place], [place] [address], [address], [facility] 12/27/2019 10:28:56 12/27/19 20 IUD Removal completed Jj Morrow MD [address] [place], [place] [address], [address], [facility] 12/27/2019 10:30:07 08/21/19 20 Date of Last Pap Smear completed Jj Morrow MD [address] [place], [place] [address], [address], [facility] 08/29/2019 14:03:38 09/26/19 15 Mirena IUD Insertion completed Jj Morrow MD [address] [place], [address], [facility] 09/25/2014 11:53:01 09/26/19 15 Hysteroscopy with Endometrial Biopsy or IUD Removal completed Jj Morrow MD [address] [place], [address], [facility] 09/25/2014 11:52:10 hernia repair completed Lauren Moreno CMA [facility] 08/30/2014 13:39:39 Imaging Results None recorded. Procedure Notes None recorded. 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 [employer] Issuing Agency Serial Number Lot Number Status Provider Name and Address Organization Details Recorded Time Mirena IUD FDA [id number] Y Dana Fuchs RN [facility], [facility] 12/27/2019 10:20:26 Allergies No known drug allergies [...] Updated DateTime 08/21/2019 162.56 cm 33 kg/m2 79747.74 g 120 mm[Hg] 70 mm[Hg] Lauren Moreno [facility] 0 10:36:19 Date Recorded Body temperature Heart rate Oxygen saturation Oxygen saturation in Arterial blood by Pulse oximetry Systolic blood pressure Diastolic blood pressure Provider Name and Address Organization Details Last Updated DateTime 2 97.8 [degF] 92 /min 98 % 98 % 142 mm[Hg] 88 mm[Hg] Araseli Goodale [facility] 2 09:48:15 Date Recorded Body height Body mass index (BMI) Body weight Systolic blood pressure Diastolic blood pressure Provider Name and Address Organization Details Last Updated DateTime 02/28/2020 162.56 cm 34.2 kg/m2 72099.88 g 142 mm[Hg] 90 mm[Hg] Ellie dennison [facility] 0 15:52:42 Social History Question Answer Notes LastModified by Organizat ion Details LastModified Time Tobacco Smoking Status Never [facility]oker [facility]/30/2014 13:39:39 Illicit Drugs No Information not available 08/21/2019 Marital Status Informatio n not available 08/21/2019 What Was The Date Of Your Most Recent Tobacco Screening? 08/21/2019 adamour Information not available 08/21/2019 Are You Sexually Active? Yes Information not available 08/30/2014 Sex: Unknown Functional Status Question Answer Note LastModified by Organizat ion Details LastModified Time What is your level of alcohol consumption? Occasional Information not available 08/30/2014 Do you or have you ever used e-cigarettes or vape? Never used electronic cigarettes Information not available 08/21/2019 Mental Status None recorded. Family History Relationship [...] Not available 02/28/2020 16:16:00 Notes:heart disease both shbuham es grandparents Medical History Condition Response other [...] SNOMED-CT Code Diagnosis ICD10 Code Diagnosis Note [id number] Allison Holguin MD [facility] [place] [facility] [address] [place] [address] 04/22/2009 13:28:25 04/22/2009 13:51:29 [id number] Jerry Jackson MD [facility] [address] [place] [address] 02/26/2009 13:13:00 02/26/2009 13:46:10 [id number] Allison Holguin MD [facility] [address] [address] 05/21/2009 09:57:04 05/21/2009 11:00:03 [id number] Allison Holguin MD [facility] [place] [facility] [address] [place] [address] 03/25/2009 10:35:51 03/25/2009 11:17:54 [id number] Jj Morrow MD [facility] [address] [place] [address] [place] [address] 09/05/2009 14:55:04 09/05/2009 15:31:45 [id number] Allison Holguin MD [facility] [address] [place] [address], [facility] [place] [address] 07/25/2009 10:24:45 07/25/2009 11:30:36 [id number] Jj Morrow MD - Outpatien t [address] [facility] [place] [address] 07/25/2009 00:00:00 12/01/2010 03:30:06 [id number] Allison Holguin MD [facility] [address] [place] [address] [place] [address] 07/02/2009 10:00:12 07/02/2009 10:35:19 [id number] Jj Morrow MD - In-Patien t 242 [facility] [place] [address] 07/27/2009 00:00:00 12/01/2010 03:30:06 [id number] Jerry Jackson MD [facility] [address] [place] [address] [place] [address] 06/19/2009 10:48:42 06/19/2009 11:11:50 [id number] Allison Holguin MD [facility] [address] [place] [address] [place] [address] 07/16/2009 09:12:10 07/16/2009 09:40:42 [id number] Jj Morrow MD [facility] [address] [place] [address], [facility] [place] [address] 07/22/2009 10:51:30 07/22/2009 11:57:24 [id number] Jj Morrow MD [facility] [address] [place] [address] [place] [address] 07/08/2009 10:49:29 07/08/2009 11:21:09 [id number] Jj Morrow MD [facility] [address] [place] [address] [place] [address] 07/02/2009 00:00:00 12/01/2010 03:30:06 [id number] Jj Morrow MD [facility] [address] [place] [address] 08/30/2014 13:19:08 08/30/2014 15:40:07 Uses IUD (intrauterine device) contraception 847507592 [id number] Jj Morrow MD [facility] [address] [place] [address] 09/25/2014 10:54:20 10/01/2014 10:59:28 Mechanical complication of intrauterine contraceptive device 891837829 Insertion of intrauterine contraceptive device 89411389 [id number] Jj Morrow MD [facility] [address] [address] 11/26/2014 14:41:08 11/27/2014 08:35:45 IUD check 925317429 [id number] Jj Morrow MD [facility] [address] [place] [address] 08/21/2019 10:19:02 08/21/2019 11:14:27 Screening for malignant neoplasm of cervix 644231226 Z12.4 Uses IUD (intrauterine device) contraception 541022834 Z97.5 [id number] Jj Morrow MD [facility] [address] [place] [address] 12/27/2019 09:43:42 12/27/2019 11:49:59 Uses IUD (intrauterine device) contraception 012540810 Z97.5 Insertion of intrauterine contraceptive device 09493423 Z30.083 [id number] Jj Morrow MD [facility] [address] [place] [address] 02/28/2020 15:32:28 02/28/2020 16:24:10 IUD check 366866781 Z30.431 Lesion of breast 3944448 04 N60.81 [id number] MAMIE LARA [facility] [place] [address] [place] [address] 12/09/2021 09:09:24 12/09/2021 10:43:36 Avulsion of skin 715271010 T14.8XXA Pt presents with skin avulsion to [...] Member ID Guarantor Name 04/28/2012 PAYMENT PLAN [facility] 12/23/2019 1 [employer] PLAN (HMO) [id number] Zelda Sarah [id number] [facility] 12/23/2019 1 [facility] Star Smith [id number] [facility]2019 1 [facility] - [facility]PP[facility] Marv Smith [id number] [facility] 12/09/2021 1 [place] [facility] [place] [place] [id number] Zelda Sarah [id number] [facility] Notes Date Note Type Note Provider Name and Address Organization Details Recorded Time 08/21/2019 text/html wants to discuss continuing with Derek hasn't had annual recently. Patient reports no abnormal vaginal bleeding, periods very light. Happy with method. Concern about decr libido- relationship good- both work full and parttime jobs. Has 10 yo son- childbearing complete. Jj Morrow MD [address] [place] [address], [phone], [facility] 08/21/2019 11:12:53 12/27/2019 text/html Procedure review ed and signed consent obtained. - IRMA Morrow MD [address] [place] [address], [phone], [facility] 12/27/2019 10:32:32 02/28/2020 text/html Breast MassRepor luis [...] no pain. YL Jj Morrow MD [address] [place], [address], [facility] 02/28/2020 17:12:36 12/09/2021 text/html 36 year old [...] d/t bleeding. Jaime Gallo III, MD [address] [place], [address], [facility] 12/09/2021 11:16:10 OBGyn Episode Ob Episode Information Episode Created Date Number of Fetuses Patient Bloodtype Patient rh Status Prepregnancy Weight lbs Domestic Partner Domestic Partner Phone Father Name Electronic Scale Subassembler Status 01/10/20 09 1 CLOSED Fetus Data [...]
[2024-12-05 13:23] VITALS: BMI 36.7
--- NOTE | 2024-12-05 13:23 | A.OFFVIS_ITS ---
VS Expanded 12/05/24 13:23 12/17/24 09:13 Height 5 ft 5 ft Weight 188 lb 0.869 oz 188 lb BMI 36.7 36.7 Intake Visit Reasons: Obesity, class 1 Allergies Seasonal Allergies Allergy (Verified 10/18/24 10:32) Itchy runny eyes and nose Shell Fish Allergy (Uncoded 10/18/24 10:32) Tongue Itches Nutrition Presentation Details: Pt presents for MNT for obesity Pt reports having lost about 30 lbs over a year, working on gradually reducing portion sizes/diet modifications Walks 2 -3 miles 4-6 x/wk food frequency fruits: 1-3/d veg: daily dairy 2-3 x/d fish - allergic to shellf baldev starches >20 /d fluids: water mainly fried foods : 0-1/m BS Monitoring Most Recent Diabetes Results: Cholesterol 153 mg/dL (<200) 11/07/24 HDL Cholesterol 36 mg/dL (>40) L 11/07/24 Triglycerides 115 mg/dL (<150) 11/07/24 Creatinine 0.69 mg/dL (0.5-1.4) 11/07/24 Blood Urea Nitrogen 14 mg/dL (9-16) 11/07/24 Sodium 137 mmol/L (135-145) 11/07/24 Potassium 4.2 mmol/L (3.3-5.1) 11/07/24 Chloride 106 mmol/L (96-108) 11/07/24 Carbon Dioxide 25 mmol/L (22-29) 11/07/24 Calcium 9.1 mg/dL (8.4-10.2) 11/07/24 AST 21 U/L (5-37) 11/07/24 ALT 31 U/L (0-40) 11/07/24 Total Protein 7.3 g/dL (6.5-8.0) 11/07/24 Albumin 4.1 g/dL (3.5-5.0) 11/07/24 SPH-Zlputia-Ty.Jeor Equation Height: 5 ft Weight: 188 lb Resting Metabolic Rate: 1441.68 Calculated Activity Level: Mild Activity Calories Needed to Maintain Weight: 1982.31 Diagnosis Nutrition problem #1: overweight/obesity As related to (etiology) #1: excess energy intake As evidenced by (sign/symptom) #1: high BMI [facility] Medical History (Updated 12/17/24 @ 09:[address], LDN) Lyme disease Positive EVIE (antinuclear antibody) Elevated blood pressure reading without diagnosis of hypertension Pain, joint, multiple sites Abnormal blood chemistry test Screening for cardiovascular condition Routine physical examination Social History (Updated 10/18/24 @ 10:35 by Ashley Lancaster MA) Housing: House Alcohol intake: current Comment: Occassionaly Patient Tobacco Use Status: Never used Tobacco e-Cigarette/Vaping Use: Never Used Second Hand Smoke Exposure: No service: No Current occupational status: employed 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 Cognitive needs: No Hearing needs: No Vision needs: No Assessment & Plan Assessment & Plan (1) Obesity (BMI 30-39.9): Code(s): E66.9 - Obesity, unspecified Category: Medical Plan: Wt: 85 Kg ( 12/2024 ) Est kcal needs as per MSJ: 6064-7852 (40% carb, 30% protein/fat) Est fluid needs as per 25-30 ml/d: 2600 Est prot per day as per 1 g/kg bw: 85 Recommend fiber intake : 8-10 g per day and gradually increase to 25-28 g per day for women and 35-38 g for men or as tolerated Recommend sodium intake per day: less than 2000 mg Educated patient on: ( R = reviewed V = verbalizes understanding N/R = needs review N/A = not applicable * Food sources of carbohydrate, adequate serving sizes and its role in various health conditions: R * Differences between complex carbohydrates a simple carbohydrates, role of fiber in diet: R * Lean protein sources of foods: R * Differences between types of fats and role in diet (mono on saturated fat fatty acids, saturated fatty acids, trans fats): R V N/R * Food sources of sodium in salt and healthy modifications for heart health in kidney health: R * Vitamins and minerals: R V N/R * Healthy plate method concept: R V N/R * Physical activity: Benefits a precaution: R * Patient Instructions: Follow healthy plate method, reduce total carb to 45=60 g at meal (3 meal/day) and 0-20 g carb as snack (2-3 /day if needed) Caution with hidden fats Coding Level of Care Code Nutr Indiv Intake (19745) Diagnoses Obesity (BMI 30-39.9) E66.9 Time Spent (min) 30
[2024-12-17 09:13] VITALS: BMI 36.7
== END 2024-12-05 13:51 | disposition home or self-care (01) ==
LOC: HO.ENCR 13:00
PROVIDERS: PCP Physician Assistant Medical; Visit Provider Dietitian, Registered
DX: E66.9 Obesity, unspecified (principal)

== ENCOUNTER → 2024-12-05 12:59 | Outpatient (BNVA) | payer BC, SELFPAY | PROVIDERS: PCP Physician Assistant Medical; Visit Provider Dietitian, Registered | DX: E66.9 Obesity, unspecified (principal) | CPT/HCPCS: 97802 ==

== ENCOUNTER 2024-12-11 15:50 | Outpatient (REF) | payer BC, SELFPAY ==
--- OUTSIDE RECORDS SUMMARY | 2024-12-11 18:48 | XMS_ITS | Data Portability ---
Author Organization [facility] Address [address] [place] [address] Care Team Providers Care Staffing Rn Name Role Phone FLAKITO MOSES Primary Care Provider ANN FLAKITO Referring Provider [phone] Assessment No assessment recorded. Plan of Treatment Reminders Order Date Submit Date Provider Last Modified By Organization Details Last Modified Time Details Appointments None record ed. Lab pap, LB + HR HPV 2019 020 [facility], [address] [place], [address], 0 08:41:06 Referral None record ed. Procedures None record ed. Surgeries None record ed. Imaging None record ed. Medication Orders cephal exin 500 mg capsul e 2021 022 [id number], [address], [place], [id number], 2 10:21:12 Patient TargetsNo targets recorded. Patient Instructions Encounter Date Encounter Id Patient Instructions Last Modified By Organization Details Last Modified Time 11/26/2014 [id number] Pt doing well. Reviewed effectiveness, precautions. Advised to monitor, call as needed. Plans regular analyst care with PCP. carrie Not available 11/26/2014 15:15:22 08/21/2019 [id number] Routine counselling regarding periods, pap screening, breast health, sexual health. Communication encouraged. I advised pt I highly doubt IUD is influence on libido. Discussed iud and BTL. Pt wants to continue w IUD. Will schedule removal/replacemen t in September. carrie Not available 08/21/2019 11:11:38 02/28/2020 [id number] Pt doing well wi th IUD. Reviewed effectiveness, precautions. Advised to monitor, call as needed. Plans routine analyst care here. Reassured breast exam. Advised monitor, [...] N OR MARIE JOSUE . Not Available [facility] [address] [place] [address], [id number], 08/27/2019 14:11:34 08/21/19 20 08/27/2019 pap, LB + HR HPV spec adequacy Commen t . normal Satis facto ry for evalu ation . Endoc ervic al and/o r squam ous metap lasti c cells (endo cervi yoshi compo nent) are prese nt. Not Available [facility] [address] [place] [address], [id number], 08/27/2019 14:11:34 08/21/19 20 08/27/2019 pap, LB + HR HPV performed by Rayo t . normal Ginny dunlap, Cytot echmiah ovalles t (ASCP ) Not Available [facility] [address] [place] [address], [id number], 08/27/2019 14:11:34 08/21/19 20 08/27/2019 pap, LB + HR HPV . . . normal Not Available [facility] [address] [place] [address], [id number], 08/27/2019 14:11:34 08/21/19 20 08/27/2019 pap, LB [...] repor ts do occur . Not Available [facility] [address] [place] [address], [address], 08/27/2019 14:11:34 08/21/19 20 08/27/2019 pap, LB + HR HPV test methodolog Commen t . normal This liqui d based ThinP rep(R ) pap test was scree stuart with the use of an image guide d syste m. Not Available [facility] [address] [place], [address], 08/27/2019 14:11:34 08/21/19 20 08/27/2019 pap, LB + HR HPV HPV aptima Negati ve negati ve normal This nucle ic acid ampli ficat ion test detec ts fourt een high- risk HPV types (16,1 8,31, 33,35 ,39,4 5,51, 52,56 ,58,5 9,66, 68) witho ut diffe renti ation . Perfo rmed at: [facility] [place] [address], [place] [address] Lab Direc tor: Dario harrell MD, Phone : [phone] Perfo rmed at: [facility] [place] [address], [place] [address] Lab Direc tor: Dario harrell MD, Phone : [phone] Not Available [facility] [address] [place], [address], 08/27/2019 14:11:34 Result Notes None recorded. Problems Name Problem SNOMED Code Status Onset Date Resolution Date Notes Provider Name and Address Organization Details Recorded Time No current problems or disability 892009970 Active Jj Morrow MD [address] [place] [address], [phone], [facility] 0 10:44:41 Severe pre-eclamps ia - not delivered 365404231 Completed 08/21/2019 Jj Morrow MD [address] [place], [place] [address] [place], [address], [facility] 0 10:44:37 Severe pre-eclamps ia - delivered 564886829 Completed 08/21/2019 Jj Morrow MD [address] [place], [place] [address] [place], [address], [facility] 0 10:44:34 Transient hypertensio n of - not delivered 800597870 Completed 08/21/2019 Jj Morrow MD [address] [place], [place] [address] [place], [address], [facility] 0 10:44:39 Forceps delivery - delivered 363017875 Completed 08/21/2019 Jj Morrow MD [address] [place], [place] [address] [place], [address], [facility] 0 10:44:27 Mechanical complicatio n of intrauterin e contracepti ve device 789704573 Completed 08/21/2019 Jj Morrow MD [address] [place], [place] [address] [place], [address], [facility] 0 10:44:31 Problem Notes None recorded. Procedures Surgical History Date Name Laterality Status Provider Name and Address Organization Details Recorded Time 12/27/19 20 IUD Insertion completed Jj Morrow MD [address] [place], [place] [address], [address], [facility] 12/27/2019 10:28:56 12/27/19 20 IUD Removal completed Jj Morrow MD [address] [place], [place] [address], [address], [facility] 12/27/2019 10:30:07 08/21/19 20 Date of Last Pap Smear completed Jj Morrow MD [address] [place], [place] [address], [address], [facility] 08/29/2019 14:03:38 09/26/19 15 Mirena IUD Insertion completed Jj Morrow MD [address] [place], [address], [facility] 09/25/2014 11:53:01 09/26/19 15 Hysteroscopy with Endometrial Biopsy or IUD Removal completed Jj Morrow MD [address] [place], [address], [facility] 09/25/2014 11:52:10 hernia repair completed Lauren Moreno CMA [facility] 08/30/2014 13:39:39 Imaging Results None recorded. Procedure Notes None recorded. 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 [employer] Issuing Agency Serial Number Lot Number Status Provider Name and Address Organization Details Recorded Time Mirena IUD FDA [id number] Y Dana Fuchs RN [facility], [facility] 12/27/2019 10:20:26 Allergies No known drug allergies [...] Updated DateTime 08/21/2019 162.56 cm 33 kg/m2 55375.74 g 120 mm[Hg] 70 mm[Hg] Lauren Moreno [facility] 0 10:36:19 Date Recorded Body temperature Heart rate Oxygen saturation Oxygen saturation in Arterial blood by Pulse oximetry Systolic blood pressure Diastolic blood pressure Provider Name and Address Organization Details Last Updated DateTime 2 97.8 [degF] 92 /min 98 % 98 % 142 mm[Hg] 88 mm[Hg] Araseli Goodale [facility] 2 09:48:15 Date Recorded Body height Body mass index (BMI) Body weight Systolic blood pressure Diastolic blood pressure Provider Name and Address Organization Details Last Updated DateTime 02/28/2020 162.56 cm 34.2 kg/m2 02280.88 g 142 mm[Hg] 90 mm[Hg] Ellie dennison [facility] 0 15:52:42 Social History Question Answer Notes LastModified by Organizat ion Details LastModified Time Tobacco Smoking Status Never Smoker [facility] 08/30/2014 13:39:39 Illicit Drugs No Information not [...] SNOMED-CT Code Diagnosis ICD10 Code Diagnosis Note [id number] Allison Holguin MD [facility] [address] [place] [phone] 04/22/2009 13:28:25 04/22/2009 13:51:29 [id number] Jerry Jackson MD [facility] [address] [place] [address] 02/26/2009 13:13:00 02/26/2009 13:46:10 [id number] Allison Holguin MD [facility] [address] [address] 05/21/2009 09:57:04 05/21/2009 11:00:03 [id number] Allison Holguin MD [facility] [place] [address] [place] [address] 03/25/2009 10:35:51 03/25/2009 11:17:54 [id number] Jj Morrow MD [facility] [address] [place] [address] [place] [address] 09/05/2009 14:55:04 09/05/2009 15:31:45 [id number] Allison Holguin MD [facility] [address] [place] [address], [facility] [place] [address] 07/25/2009 10:24:45 07/25/2009 11:30:36 [id number] Jj Morrow MD - Outpatien t [address] [facility] [place] [address] 07/25/2009 00:00:00 12/01/2010 03:30:06 [id number] Allison Holguin MD [facility] [address] [place] [address] [place] [address] 07/02/2009 10:00:12 07/02/2009 10:35:19 [id number] Jj Morrow MD - In-Patien t 242 [facility] [place] [address] 07/27/2009 00:00:00 12/01/2010 03:30:06 [id number] Jerry Jackson MD [facility] [address] [place] [address] [place] [address] 06/19/2009 10:48:42 06/19/2009 11:11:50 [id number] Allison Holguin MD [facility] [address] [place] [address] [place] [address] 07/16/2009 09:12:10 07/16/2009 09:40:42 [id number] Jj Morrow MD [facility] [address] [place] [address], [facility] [place] [address] 07/22/2009 10:51:30 07/22/2009 11:57:24 [id number] Jj Morrow MD [facility] [address] [place] [address] [place] [address] 07/08/2009 10:49:29 07/08/2009 11:21:09 [id number] Jj Morrow MD [facility] [address] [place] [address] [place] [address] 07/02/2009 00:00:00 12/01/2010 03:30:06 [id number] Jj Morrow MD [facility] [address] [place] [address] 08/30/2014 13:19:08 08/30/2014 15:40:07 Uses IUD (intrauterine device) contraception 451597231 [id number] Jj Morrow MD [facility] [address] [place] [address] 09/25/2014 10:54:20 10/01/2014 10:59:28 Mechanical complication of intrauterine contraceptive device 901675466 Insertion of intrauterine contraceptive device 10253004 [id number] Jj Morrow MD [facility] [address] [address] 11/26/2014 14:41:08 11/27/2014 08:35:45 IUD check 248625609 [id number] Jj Morrow MD [facility] [address] [place] [address] 08/21/2019 10:19:02 08/21/2019 11:14:27 Screening for malignant neoplasm of cervix 509694202 Z12.4 Uses IUD (intrauterine device) contraception 364828975 Z97.5 [id number] Jj Morrow MD [facility] [address] [place] [address] 12/27/2019 09:43:42 12/27/2019 11:49:59 Uses IUD (intrauterine device) contraception 336948519 Z97.5 Insertion of intrauterine contraceptive device 46414110 Z30.413 [id number] Jj Morrow MD [facility] [address] [place] [address] 02/28/2020 15:32:28 02/28/2020 16:24:10 IUD check 088695285 Z30.431 Lesion of breast 6524187 04 N60.81 [id number] MAMIE LARA [facility] [address] [place] [address] 12/09/2021 09:09:24 12/09/2021 10:43:36 Avulsion of skin 233433354 T14.8XXA Pt presents with skin avulsion to [...] Member ID Guarantor Name 04/28/2012 PAYMENT PLAN [facility] 12/23/2019 1 [employer]MT Medical PLAN (HMO) [id number] Zelda Sarah [id number] [facility] 12/23/2019 1 [facility] Star Smith [id number] [facility] 08/21/2019 1 [facility] - [facility] (PPO) Marv Smith [id number] [facility] 12/09/2021 1 BC-CO: O [facility] [id number] Zelda Sarah [id number] [facility] Notes Date Note Type Note Provider Name and Address Organization Details Recorded Time 08/21/2019 text/html wants to discuss continuing with Derek hasn't had annual recently. Patient reports no abnormal vaginal bleeding, periods very light. Happy with method. Concern about decr libido- relationship good- both work full and parttime jobs. Has 10 yo son- childbearing complete. Jj Morrow MD [address] [place] [address], [address], [facility] 08/21/2019 11:12:53 12/27/2019 text/html Procedure review ed and signed consent obtained. - IRMA Morrow MD [address] [place] [address], [address], [facility] 12/27/2019 10:32:32 02/28/2020 text/html Breast MassRepor [...] no pain. YL Jj Morrow MD [address] [place], [address], [facility] 02/28/2020 17:12:36 12/09/2021 text/html 36 year [...] d/t bleeding. Jaime Gallo III, MD [address] [place], [address], [facility] 12/09/2021 11:16:10 OBGyn Episode Ob Episode Information Episode Created Date Number of Fetuses Patient Bloodtype Patient rh Status Prepregnancy Weight lbs Domestic Partner Domestic Partner Phone Father Name Wire Photo Operator News Status 01/10/20 09 1 CLOSED Fetus Data [...]
== END 2024-12-11 15:51 | disposition home or self-care (01) ==
LOC: HO.MAMMO 15:50
PROVIDERS: PCP Physician Assistant Medical; Visit Provider Physician Assistant Medical
DX: Z12.31 Encounter for screening mammogram for malignant neoplasm of breast (principal)
CPT/HCPCS: 77063; 77067

== ENCOUNTER → 2024-12-11 16:15 | Outpatient (BNV) | payer BC, SELFPAY | PROVIDERS: PCP Physician Assistant Medical; Visit Provider Internal Medicine | DX: Z12.31 Encounter for screening mammogram for malignant neoplasm of breast (principal) | CPT/HCPCS: 77063; 77067 ==

== ENCOUNTER 2024-12-20 11:30 | Outpatient (AMB) | payer BC, SELFPAY ==
--- NOTE | 2024-12-20 11:34 | MHC.PC.OV ---
Vital Signs 12/20/24 11:38 Height 5 ft Weight 185 lb 6 oz BMI 36.2 BP 116/70 Blood Pressure Location Rt brachial Position Sitting Respiration 14 Pulse 96 Pulse Source Pulse Oximeter Temp 98 F Temp Source Temporal Artery Scan Pulse Oximetry (%) 97 Oxygen Delivery Method Room Air Intake Visit Reasons: BP check Intake Note: Zelda presents in the office today for a BP check. Allergies Seasonal Allergies Allergy (Verified 12/20/24 11:36) Itchy runny eyes and nose Shell Fish Allergy (Uncoded 12/20/24 11:36) Tongue Itches Tobacco use date assessed: 12/20/24 Dental Screening Dental Screen Date: 12/20/24 Did you have a dental visit in the last 12 months?: Yes Did you have a dental problem in the last 6 months where you did not have access to dental care?: No Was dental information given to patient?: Patient has dentist HPI HPI Comments History of Present Illness Details This is a 39-year-old female with a past medical history of shellfish allergy, seasonal allergies and Lyme disease presenting for follow up. She had her mammogram completed 12/11/2024. We spoke about this on the phone on Tuesday. She has a extremely dense breast tissue, and there were asymmetries in the retroareolar region of the superior breast on the left side. It was recommended to consider yearly breast MRI screening since the patient has a family history of breast cancer and dense breast tissue. Additional views of the left breast and target old ultrasound if warranted were also recommended, and she is going to be contacted by Radiology to set that up. Patient's sister had breast cancer at age 52. Patient texted her sister to ask if she was tested for BRCA mutation, and she will let me know. At her initial visit she reported bilateral shoulder and knee pain that was bothering her for a few months. 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 She reported a history of fraying of the right rotator cuff in the past that was treated a few years ago with physical therapy and activity restriction. Endorses more shoulder pain with lifting. One of her main concerns was that her knees or has been hurting more with some alleviation after application of ice compress. She also reported having a tick bite on her stomach last year, but she never saw a bull's-eye rash. Denies fevers or chills. Lyme screening positive and Lyme IgG Western blot was positive on 11/07/2024. IgM negative. She had no prior history of Lyme disease. EVIE also positive. No known family history of autoimmune disease. She was treated with a 28 day course of doxycycline which she just completed. She denies side effects on the medicine. She reports resolution of knee pain and improved fatigue. She was referred to Infectious Disease, and she has been contacted to schedule the consult. Bilateral shoulder x-ray and knee x-rays were negative. She endorses non restorative sleep, and her tells her that she snores. She goes to bed around 9:30pm every night and wakes up at 05:30 or 6 a.m. She endorses daytime somnolence. She could easily fall asleep and take a nap. She has 2 cups of coffee in the morning. She does not drink caffeine later in the day. She does not have a history of excessive alcohol use. ROS: Constitutional: No unexplained weight loss, fever, chills, fatigue or night sweats. Eyes: No vision changes, blurry vision, double vision, eye pain, eye redness, eye discharge. Cardiovascular: No chest pain, chest pressure or chest discomfort. No palpitations or pedal edema. Gastrointestinal: No anorexia, nausea, vomiting or diarrhea. No abdominal pain or blood in stool. Neurologic: No headache, dizziness, syncope, unilateral weakness, ataxia, numbness or tingling in the extremities. Musculoskeletal: See HPI Hematologic/Lymphatics: No bleeding or bruising. No painful lymph nodes. Skin: No rash Physical exam: Constitutional: Alert, in no distress. Neck: Supple, Full range of motion. No lymphadenopathy. Respiratory: Clear to auscultation. Cardiovascular: S1 S2 regular. No murmurs. Neurologic: No focal neurological deficits. Skin: No rashes Musculoskeletal: Shoulders: No visible deformity, redness or swelling. Crepitus of the right shoulder joint with range of motion activities. Full range of motion of shoulders. Bilateral empty can maneuver produces shoulder pain. Shoulder strength 5/5 bilaterally. Knees: No crepitus, deformity, swelling or redness of the knees. Full range of motion of the knees. Nontender to palpation. Strength 5/5 bilaterally. Negative Marion maneuver bilaterally. Extremities: Warm and well perfused. No clubbing, cyanosis or edema. Intact peripheral pulses upper and lower extremities. Psychiatric: Normal mood and affect [facility] Medical History (Updated 12/20/24 @ 11:59 by MAMIE Fuchs) Non-restorative sleep Family history of breast cancer in first degree relative Extremely dense tissue of both breasts on mammography Lyme disease Positive EVIE (antinuclear antibody) Elevated blood pressure reading without diagnosis of hypertension Pain, joint, multiple sites Abnormal blood chemistry test Screening for cardiovascular condition Routine physical examination Family History Sister Breast cancer Social History (Updated 12/20/24 @ 11:38 by Ashley Lancaster MA) Housing: House Alcohol intake: current Comment: Occassionaly Patient Tobacco Use Status: Never used Tobacco e-Cigarette/Vaping Use: Never Used Second Hand Smoke Exposure: No service: No Current occupational status: employed 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 Cognitive needs: No Hearing needs: No Vision needs: No Questionnaire Thrive Questionnaire Date Thrive assessed: 10/17/24 I am a: Patient What is your living situation today?: I have a steady place to live Within the past 12 months, did the food you bought not last and you didn't have the money to get more?: Never true Within the past 12 months, did you worry whether your food would run out before you got money to buy more?: Never true Do you have trouble paying for medicines?: No Do you have trouble getting transportation to medical appointments?: No Do you have trouble paying your heating and electricity bill?: No Do you have trouble taking care of your child, family member or friend?: No Do you have trouble with day-to-day activities such as bathing, preparing meals, shopping, managing finances, etc.?: No Are you currently unemployed and looking for a job?: No Are you interested in more education?: Yes Please select the resources that you would like help with: Education Currently or been in a relationship where the following occur: No concerns reported THRIVE Score: 0 APRIL-7 AMB Questionnaire APRIL-7 Date APRIL - 7 assessed: 10/18/24 Source: Developed by Drs. Evaristo Story, Renu Brower, Himanshu Ramos and colleagues, with an educational rhonda from [employer]. Physical exam (Primary Care) Vital Signs: Last Vital Signs Temp 98 F 12/20/24 11:38 Pulse 96 12/20/24 11:38 Resp 14 12/20/24 11:38 BP 116/70 12/20/24 11:38 Pulse Ox 97 12/20/24 11:38 Oxygen Delivery Method Room Air 12/20/24 11:38 BMI result Body Mass Index 36.2 Tobacco/Smoking Status: Tobacco use Status Tobacco use date assessed 12/20/24 12/20/24 11:38 Patient Tobacco Use Status Never used Tobacco 12/20/24 11:38 e-Cigarette/Vaping Use Never Used 12/20/24 11:38 Thrive Assessment: Date of Thrive Assessment Date Thrive assessed 10/17/24 12/20/24 11:38 Currently or been in a relationship where the following occur: No concerns reported Coding Level of Care Code Est Pt Level 4 (51774) Complex EM visit Add On G2211 Diagnoses Pain, joint, multiple sites M25.50 Positive EVIE (antinuclear antibody) R76.8 Extremely dense tissue of both breasts on mammography R92.343 Family history of breast cancer in first degree relative Z80.3 Non-restorative sleep G47.8 Assessment & Plan Assessment & Plan (1) Pain, joint, multiple sites: Code(s): M25.50 - Pain in unspecified joint Category: Medical Plan: Shoulder pain may be related to her occupation. X-rays negative. She is going to have the ID consult due to Lyme disease that was recently treated. We can consider referral to orthopedics and physical therapy after this. (2) Positive EVIE (antinuclear antibody): Code(s): R76.8 - Other specified abnormal immunological findings in serum Category: Medical Plan: Positive EVIE could be seen with Lyme disease. Plan to repeat this in 8 weeks. If it persists I can refer to Rheumatology anew. (3) Extremely dense tissue of both breasts on mammography: Code(s): R92.343 - Mammographic extreme density, bilateral breasts Category: Medical Plan: Proceed with additional mammogram images due to asymmetry of left breast and ordered bilateral breast MRI given extremely dense breast tissue and family history of breast cancer in a first-degree relative. She will let me know if her sister did test positive for the BRCA mutation. Consider referral to breast specialty. (4) Family history of breast cancer in first degree relative: Code(s): Z80.3 - Family history of malignant neoplasm of breast Category: Medical (5) Non-restorative sleep: Code(s): G47.8 - Other sleep disorders Category: Medical Plan: Snoring, non restorative sleep and daytime somnolence. Proceed with sleep study. Plan Follow up in 8 weeks. Orders: Orders EVIE Reflex Titer and Pattern 8 Weeks R76.8 - Other specified abnormal immunological findings in serum RT home sleep study 12/20/24 G47.8 - Other sleep disorders
[2024-12-20 11:38] VITALS: BP 116/70; PULSE 96; RESP 14; TEMP 36.6; O2SAT 97; BMI 36.2
--- OUTSIDE RECORDS SUMMARY | 2024-12-20 13:03 | XMS_ITS | Data Portability ---
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 Plan of Treatment Reminders Order Date Submit Date Provider Last Modified By Organization Details Last Modified Time Details Appointments None record ed. Lab pap, LB + HR HPV 2019 020 [facility], [address] [place], [address], 0 08:41:06 Referral None record ed. Procedures None record ed. Surgeries None record ed. Imaging None record ed. Medication Orders cephal exin 500 mg capsul e 2021 022 [id number], [address], [place], [id number], 2 10:21:12 Patient TargetsNo targets recorded. Patient Instructions Encounter Date Encounter Id Patient Instructions Last Modified By Organization Details Last Modified Time 11/26/2014 [id number] Pt doing well. Reviewed effectiveness, precautions. Advised to monitor, call as needed. Plans regular talent development specialist care with PCP. carrie Not available 11/26/2014 15:15:22 08/21/2019 [id number] Routine counselling regarding periods, pap screening, breast health, sexual health. Communication encouraged. I advised pt I highly doubt IUD is influence on libido. Discussed iud and BTL. Pt wants to continue w IUD. Will schedule removal/replacemen t in September. carrie Not available 08/21/2019 11:11:38 02/28/2020 [id number] Pt doing well wi th IUD. Reviewed effectiveness, precautions. Advised to monitor, call as needed. Plans routine talent development specialist care here. Reassured breast exam. Advised monitor, [...] N OR MARIE JOSUE . Not Available [facility] [address] [place] [address], [address], 08/27/2019 14:11:34 08/21/19 20 08/27/2019 pap, LB + HR HPV spec adequacy Commen t . normal Satis facto ry for evalu ation . Endoc ervic al and/o r squam ous metap lasti c cells (endo cervi yoshi compo nent) are prese nt. Not Available [facility] [address] [place] [address], [address], 08/27/2019 14:11:34 08/21/19 20 08/27/2019 pap, LB + HR HPV performed by Rayo t . normal Ginny dunlap, Cytot echmiah ovalles t (ASCP ) Not Available [facility] [address] [place] [address], [address], 08/27/2019 14:11:34 08/21/19 20 08/27/2019 pap, LB + HR HPV . . . normal Not Available [facility] [address] [place] [address], [address], 08/27/2019 14:11:34 08/21/19 20 08/27/2019 pap, LB [...] repor ts do occur . Not Available [facility] [address] [place] [address], [address], 08/27/2019 14:11:34 08/21/19 20 08/27/2019 pap, LB + HR HPV test methodolog Commen t . normal This liqui d based ThinP rep(R ) pap test was scree stuart with the use of an image guide d syste m. Not Available [facility] [address] [place], [address], 08/27/2019 14:11:34 08/21/19 20 08/27/2019 pap, LB + HR HPV HPV aptima Negati ve negati ve normal This nucle ic acid ampli ficat ion test detec ts fourt een high- risk HPV types (16,1 8,31, 33,35 ,39,4 5,51, 52,56 ,58,5 9,66, 68) witho ut diffe renti ation . Perfo rmed at: [facility] [place] [address], [place] [address] Lab Direc tor: Dario harrell MD, Phone : [phone] Perfo rmed at: [facility] [place] [address], [place] [address] Lab Direc tor: Dario harrell MD, Phone : [phone] Not Available [facility] [address] [place], [address], 08/27/2019 14:11:34 Result Notes None recorded. Problems Name Problem SNOMED Code Status Onset Date Resolution Date Notes Provider Name and Address Organization Details Recorded Time No current problems or disability 667363019 Active Jj Morrow MD [address] [place] [address], [phone], [facility] 0 10:44:41 Severe pre-eclamps ia - not delivered 343570989 Completed 08/21/2019 Jj Morrow MD [address] [place], [place] [address] [place], [address], [facility] 0 10:44:37 Severe pre-eclamps ia - delivered 119321962 Completed 08/21/2019 Jj Morrow MD [address] [place], [place] [address] [place], [address], [facility] 0 10:44:34 Transient hypertensio n of - not delivered 704823226 Completed 08/21/2019 Jj Morrow MD [address] [place], [place] [address] [place], [address], [facility] 0 10:44:39 Forceps delivery - delivered 084500858 Completed 08/21/2019 Jj Morrow MD [address] [place], [place] [address] [place], [address], [facility] 0 10:44:27 Mechanical complicatio n of intrauterin e contracepti ve device 488296992 Completed 08/21/2019 Jj Morrow MD [address] [place], [place] [address] [place], [address], [facility] 0 10:44:31 Problem Notes None recorded. Procedures Surgical History Date Name Laterality Status Provider Name and Address Organization Details Recorded Time 12/27/19 20 IUD Insertion completed Jj Morrow MD [address] [place], [place] [address], [address], [facility] 12/27/2019 10:28:56 12/27/19 20 IUD Removal completed Jj Morrow MD [address] [place], [place] [address], [address], [facility] 12/27/2019 10:30:07 08/21/19 20 Date of Last Pap Smear completed Jj Morrow MD [address] [place], [place] [address], [address], [facility] 08/29/2019 14:03:38 09/26/19 15 Mirena IUD Insertion completed Jj Morrow MD [address] [place], [address], [facility] 09/25/2014 11:53:01 09/26/19 15 Hysteroscopy with Endometrial Biopsy or IUD Removal completed Jj Morrow MD [address] [place], [address], [facility] 09/25/2014 11:52:10 hernia repair completed Lauren Moreno CMA [facility] 08/30/2014 13:39:39 Imaging Results None recorded. Procedure Notes None recorded. 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 [employer] Issuing Agency Serial Number Lot Number Status Provider Name and Address Organization Details Recorded Time Mirena IUD FDA [id number] Y Dana Fuchs RN [facility], [facility] 12/27/2019 10:20:26 Allergies No known drug allergies [...] Updated DateTime 08/21/2019 162.56 cm 33 kg/m2 45493.74 g 120 mm[Hg] 70 mm[Hg] Lauren Moreno [facility] 0 10:36:19 Date Recorded Body temperature Heart rate Oxygen saturation Oxygen saturation in Arterial blood by Pulse oximetry Systolic blood pressure Diastolic blood pressure Provider Name and Address Organization Details Last Updated DateTime 2 97.8 [degF] 92 /min 98 % 98 % 142 mm[Hg] 88 mm[Hg] Araseli Goodale [facility] 2 09:48:15 Date Recorded Body height Body mass index (BMI) Body weight Systolic blood pressure Diastolic blood pressure Provider Name and Address Organization Details Last Updated DateTime 02/28/2020 162.56 cm 34.2 kg/m2 33399.88 g 142 mm[Hg] 90 mm[Hg] Ellie dennison [facility] 0 15:52:42 Social History Question Answer Notes LastModified by Organizat ion Details LastModified Time Tobacco Smoking Status Never Smoker Lauren Moreno CMA [facility] 08/30/2014 13:39:39 Illicit Drugs No Information not [...] SNOMED-CT Code Diagnosis ICD10 Code Diagnosis Note [id number] Allison Holguin MD [facility] Office [address] [place] [address] 04/22/2009 13:28:25 04/22/2009 13:51:29 [id number] Jerry Jackson MD [facility] [address] [place] [address] 02/26/2009 13:13:00 02/26/2009 13:46:10 [id number] Allison Holguin MD [facility] [address] [address] 05/21/2009 09:57:04 05/21/2009 11:00:03 [id number] Allison Holguin MD [facility] Office [address] [place] [address] 03/25/2009 10:35:51 03/25/2009 11:17:54 [id number] Jj Morrow MD [facility] [address] [place] [address] [place] [address] 09/05/2009 14:55:04 09/05/2009 15:31:45 [id number] Allison Holguin MD [facility] [address] [place] [address], [facility] [address] 07/25/2009 10:24:45 07/25/2009 11:30:36 [id number] Jj Morrow MD - Outpatien t [address] [facility] [place] [address] 07/25/2009 00:00:00 12/01/2010 03:30:06 [id number] Allison Holguin MD [facility] [address] [place] [address] [place] [address] 07/02/2009 10:00:12 07/02/2009 10:35:19 [id number] Jj Morrow MD - In-Patien t [address] [facility] [place] [address] 07/27/2009 00:00:00 12/01/2010 03:30:06 [id number] Jerry Jackson MD [facility] [address] [place] [address] [place] [address] 06/19/2009 10:48:42 06/19/2009 11:11:50 [id number] Allison Holguin MD [facility] [address] [place] [address] [place] [address] 07/16/2009 09:12:10 07/16/2009 09:40:42 [id number] Jj Morrow MD [facility] [address] [place] [address], [facility] [address] 07/22/2009 10:51:30 07/22/2009 11:57:24 [id number] Jj Morrow MD [facility] [address] [place] [address] [place] [address] 07/08/2009 10:49:29 07/08/2009 11:21:09 [id number] Jj Morrow MD [facility] [address] [place] [address] [place] [address] 07/02/2009 00:00:00 12/01/2010 03:30:06 [id number] Jj Morrow MD [facility] [address] [place] [address] 08/30/2014 13:19:08 08/30/2014 15:40:07 Uses IUD (intrauterine device) contraception 052819600 [id number] Jj Morrow MD [facility] [address] [place] [address] 09/25/2014 10:54:20 10/01/2014 10:59:28 Mechanical complication of intrauterine contraceptive device 503628654 Insertion of intrauterine contraceptive device 53302359 [id number] Jj Morrow MD [facility] [address] [address] 11/26/2014 14:41:08 11/27/2014 08:35:45 IUD check 343128986 [id number] Jj Morrow MD [facility] [address] [place] [address] 08/21/2019 10:19:02 08/21/2019 11:14:27 Screening for malignant neoplasm of cervix 870116857 Z12.4 Uses IUD (intrauterine device) contraception 356854484 Z97.5 [id number] Jj Morrow MD [facility] [address] [place] [address] 12/27/2019 09:43:42 12/27/2019 11:49:59 Uses IUD (intrauterine device) contraception 044992024 Z97.5 Insertion of intrauterine contraceptive device 83950311 Z30.735 [id number] Jj Morrow MD [facility] [address] [place] [address] 02/28/2020 15:32:28 02/28/2020 16:24:10 IUD check 213209870 Z30.431 Lesion of breast 8062893 04 N60.81 [id number] MAMIE LARA [facility] [address] [place] [address] 12/09/2021 09:09:24 12/09/2021 10:43:36 Avulsion of skin 056894704 T14.8XXA Pt presents with skin avulsion to [...] Member ID Guarantor Name 04/28/2012 PAYMENT PLAN [facility] 12/23/2019 1 [employer] PLAN (HMO) [id number] Zelda Sarah [id number] [facility] 12/23/2019 1 [facility] Star Smith [id number] [facility] 08/21/2019 1 [facility]LY [facility] Marv Smith [id number] [facility] 12/09/2021 1 BC-CA: O [facility] [id number] Zelda Sarah [id number] [facility] Notes Date Note Type Note Provider Name and Address Organization Details Recorded Time 08/21/2019 text/html wants to discuss continuing with Derek hasn't had annual recently. Patient reports no abnormal vaginal bleeding, periods very light. Happy with method. Concern about decr libido- relationship good- both work full and parttime jobs. Has 10 yo son- childbearing complete. Jj Morrow MD [address] [place] [address], [address], [facility] 08/21/2019 11:12:53 12/27/2019 text/html Procedure review ed and signed consent obtained. - IRMA Morrow MD [address] [place] [address], [phone], [facility] 12/27/2019 10:32:32 02/28/2020 text/html Breast MassRepor luis [...] no pain. YL Jj Morrow MD [address] [place], [address], [facility] 02/28/2020 17:12:36 12/09/2021 text/html 36 year old [...] d/t bleeding. Jaime Gallo III, MD [address] [place], [address], [facility] 12/09/2021 11:16:10 OBGyn Episode Ob Episode Information Episode Created Date Number of Fetuses Patient Bloodtype Patient rh Status Prepregnancy Weight lbs Domestic Partner Domestic Partner Phone Father Name Electroplater Status 01/10/20 09 1 CLOSED Fetus Data [...]
== END 2024-12-20 12:12 | disposition home or self-care (01) ==
LOC: HO.HMCFM 11:31
PROVIDERS: PCP Physician Assistant Medical; Visit Provider Physician Assistant Medical
DX: M25.50 Pain in unspecified joint (principal); R76.8 Other specified abnormal immunological findings in serum; R92.343 Mammographic extreme density, bilateral breasts; Z80.3 Family history of malignant neoplasm of breast; G47.8 Other sleep disorders

== ENCOUNTER → 2025-02-05 08:30 | Outpatient (BNV) | payer BC, SELFPAY | PROVIDERS: PCP Physician Assistant Medical; Visit Provider Radiology Body Imaging | DX: R92.8 Other abnormal and inconclusive findings on diagnostic imaging of breast (principal) | CPT/HCPCS: 77061; 77065 ==

== ENCOUNTER 2025-02-05 08:35 | Outpatient (REF) | payer BC, SELFPAY ==
--- NOTE | ~2025-02-05 | MM_ITS ---
EXAMINATION: MM DIAGNOSTIC DIGITAL BREAST TOMOSYNTHESIS, LEFT CLINICAL INFORMATION: Callback from screening for left breast asymmetries in the retroareolar region superior breast posterior depth on the MLO view. COMPARISON: Baseline screening mammogram on December 11, 2024. TECHNIQUE: Digital breast tomosynthesis is performed in full-field ML 90 degrees along with computer-aided detection (CAD). Synthesized 2D images are generated from the tomosynthesis. Spot compression tomosynthesis images were also obtained. FINDINGS: BREAST COMPOSITION: The breasts are extremely dense, which lowers the sensitivity of mammography (ACR BI-RADS breast composition Category d). LEFT BREAST: Previously suggested asymmetries on the MLO view presses out and do not persist on today's additional images, and most likely represented overlapping fibroglandular breast tissue. No suspicious mammographic findings seen. MM/MM tomosynthesis added views L IMPRESSION: LEFT BREAST: Negative, no mammographic evidence of malignancy. Normal interval follow-up is recommended in 12 months. However, as previously stated in the prior screening mammogram report, a breast MRI screening surveillance should be considered. Patient informed us that the breast MRI is scheduled for tomorrow. ASSESSMENT: BI-RADS 1 - Negative RECOMMENDATION: 1 year F/U Results were provided to the patient at time of visit by the technologist. This patient's information was entered into a reminder system with a target due date for their next mammogram. Electronically signed by: Alanna Altman MD 02/05/2025 09:13 AM EDT Workstation: [id number]
== END 2025-02-05 08:36 | disposition home or self-care (01) ==
LOC: HO.MAMMO 08:35
PROVIDERS: PCP Physician Assistant Medical; Visit Provider Physician Assistant Medical
DX: N64.89 Other specified disorders of breast (principal)
CPT/HCPCS: 77061; 77065

== ENCOUNTER 2025-02-06 15:15 | Outpatient (REF) | payer BC, SELFPAY ==
--- NOTE | ~2025-02-06 | MR_ITS ---
EXAMINATION: MR BREAST WITHOUT AND WITH CONTRAST, BILATERAL CLINICAL INFORMATION: Dense breast tissue. Strong family history of breast cancer including sister in her 40s. COMPARISON: Comparison is made with relevant prior imaging. TECHNIQUE: MR imaging of the breast was performed using T1, T2 and fat saturated techniques. Dynamic multiphase imaging was also performed after the administration of intravenous gadolinium contrast agent. Computer generated 3D reconstruction and enhancement kinetic analysis was ulitized by the radiologist in the interpretation of this examination. FINDINGS: Breast composition: Extremely dense fibroglandular breast tissue Background parenchymal enhancement: Marked LEFT BREAST: Bilateral nonenhancing T2 hyperintense cysts. 6 mm oval enhancing mass versus background enhancement central inner breast far posterior depth series 1041, image 64/126. Otherwise no suspicious enhancing masses or areas of nonmass enhancement. No axillary or internal mammary adenopathy. RIGHT BREAST: Bilateral nonenhancing T2 hyperintense cysts.e No suspicious enhancing masses or areas of non mass enhancement. No axillary or internal mammary adenopathy. Limited views of the chest and abdomen are unremarkable. MR/MR breast BI wo/w con IMPRESSION: Right: Negative. Left: 6 mm oval enhancing mass versus background enhancement central inner left breast far posterior depth. Recommend six-month follow-up MRI for further evaluation of stability. ASSESSMENT: LEFT BREAST: BI-RADS 3-Probably Benign RIGHT BREAST: BI-RADS 2-Benign RECOMMENDATIONS: Yearly screening mammography. 6 month follow-up breast MRI for further evaluation of stability 6 mm oval enhancing mass versus background enhancement left breast. Electronically signed by: Lauren Young DO 02/08/2025 03:33 PM EDT
== END 2025-02-06 15:16 | disposition home or self-care (01) ==
LOC: HO.MRI 15:15
PROVIDERS: PCP Physician Assistant Medical; Visit Provider Physician Assistant Medical
DX: R92.343 Mammographic extreme density, bilateral breasts (principal); Z80.3 Family history of malignant neoplasm of breast
CPT/HCPCS: 77049; A9585

== ENCOUNTER → 2025-02-06 15:25 | Outpatient (BNV) | payer BC, SELFPAY | PROVIDERS: PCP Physician Assistant Medical; Visit Provider Internal Medicine | DX: R92.343 Mammographic extreme density, bilateral breasts (principal); Z80.3 Family history of malignant neoplasm of breast | CPT/HCPCS: 77049 ==

== ENCOUNTER 2025-02-21 13:37 | Outpatient (AMB) | payer BC, SELFPAY ==
--- NOTE | 2025-02-21 13:44 | MHC.PC.OV ---
Vital Signs 02/21/25 13:48 Height 5 ft 2 in Weight 188 lb 6 oz BMI 34.5 BP 116/82 Blood Pressure Location Rt brachial Position Sitting Respiration 14 Pulse 93 Pulse Source Pulse Oximeter Temp 98.2 F Temp Source Temporal Artery Scan Pulse Oximetry (%) 96 Oxygen Delivery Method Room Air Intake Visit Reasons: left shoulder pain /Lab review Intake Note: Zelda presents in the office today for a shoulder pain and a review of her most recent lab results. Patient has also had a (L) breast mammograms and an Bilateral MRI. Allergies Seasonal Allergies Allergy (Verified 02/21/25 13:47) Itchy runny eyes and nose Shell Fish Allergy (Uncoded 02/21/25 13:47) Tongue Itches Tobacco use date assessed: 02/21/25 Dental Screening Dental Screen Date: 02/21/25 Did you have a dental visit in the last 12 months?: Yes Did you have a dental problem in the last 6 months where you did not have access to dental care?: No Was dental information given to patient?: Patient has dentist HPI HPI Comments History of Present Illness Details This is a 39-year-old female with a past medical history of shellfish allergy, seasonal allergies and Lyme disease presenting for follow up. She had her mammogram completed 12/11/2024 which showed extremely dense breast tissue, and there were asymmetries in the retroareolar region of the superior breast on the left side. She has a family history of breast cancer. Sister had breast cancer age 52. She had a breast MRI on 02/06/2025 which showed left 6 mm oval enhancing mass versus background enhancement central in her left breast. Six-month follow up MRI was recommended for stability. She has been referred to the breast surgeon for further management. At her initial visit she reported bilateral shoulder and knee pain that was bothering her for a few months. 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 She reported a history of fraying of the right rotator cuff in the past that was treated a few years ago with physical therapy and activity restriction. Endorses more shoulder pain with lifting. One of her main concerns was that her knees or has been hurting more with some alleviation after application of ice compress. She also reported having a tick bite on her stomach last year, but she never saw a bull's-eye rash. Denies fevers or chills. Lyme screening positive and Lyme IgG Western blot was positive on 11/07/2024. IgM negative. She had no prior history of Lyme disease. EVIE also positive. No known family history of autoimmune disease. She was treated with a 28 day course of doxycycline. She reported resolution of knee pain and improved fatigue. Bilateral shoulder x-ray and knee x-rays were negative. EVIE positive. She was going to repeat this once she completed treatment for Lyme. She has an appointment scheduled with ID 02/26/25. She endorses left shoulder and left knee pain again today. Tylenol PM does not work. NSAIDs don't work. Pain is worse in the morning. It is moderate to severe based on activity. Shoulder pain is worse with fast movements and raising the arm. Denies numbness and tingling and weakness. She's had knee pain her entire life, but it has been worse during the past year. Stairs cause pain. Denies numbness and tingling and weakness. ROS: Constitutional: No unexplained weight loss, fever, chills, fatigue or night sweats. Eyes: No vision changes, blurry vision, double vision, eye pain, eye redness, eye discharge. Cardiovascular: No chest pain, chest pressure or chest discomfort. No palpitations or pedal edema. Gastrointestinal: No anorexia, nausea, vomiting or diarrhea. No abdominal pain or blood in stool. Neurologic: No headache, dizziness, syncope, unilateral weakness, ataxia, numbness or tingling in the extremities. Musculoskeletal: See HPI Hematologic/Lymphatics: No bleeding or bruising. No painful lymph nodes. Skin: No rash Physical exam: Constitutional: Alert, in no distress. Neck: Supple, Full range of motion. No lymphadenopathy. Respiratory: Clear to auscultation. Cardiovascular: S1 S2 regular. No murmurs. Shoulders: No visible deformity, redness or swelling. Shoulders nontender to palpation. Full range of motion of shoulders, but she has pain with left shoulder abduction. Bilateral empty can maneuver produces shoulder pain. Shoulder strength 5/5 bilaterally. Negative Speed's test bilaterally. Knees: No crepitus, deformity, swelling or redness of the knees. Full range of motion of the knees, pain with left knee flexion and extension. Nontender to palpation. Strength 5/5 bilaterally. Negative Marion maneuver bilaterally. Normal gait. Extremities: Warm and well perfused. No clubbing, cyanosis or edema. Intact peripheral pulses upper and lower extremities. Psychiatric: Normal mood and affect [facility] Medical History (Updated 02/21/25 @ 14:10 by MAMIE Fuchs) Left shoulder pain Left knee pain Bilateral shoulder pain Abnormal MRI, breast Snoring Fatigue Non-restorative sleep Family history of breast cancer in first degree relative Extremely dense tissue of both breasts on mammography Lyme disease Positive EVIE (antinuclear antibody) Elevated blood pressure reading without diagnosis of hypertension Pain, joint, multiple sites Abnormal blood chemistry test Screening for cardiovascular condition Routine physical examination Family History Sister Breast cancer Social History (Updated 02/21/25 @ 13:48 by Ashley Lancaster MA) Housing: House Alcohol intake: current Comment: Occassionaly Patient Tobacco Use Status: Never used Tobacco e-Cigarette/Vaping Use: Never Used Second Hand Smoke Exposure: No Use of substances other than those prescribed or required for medical reasons: No service: No Current occupational status: employed 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 Cognitive needs: No Hearing needs: No Vision needs: No Questionnaire Thrive Questionnaire Date Thrive assessed: 10/17/24 I am a: Patient What is your living situation today?: I have a steady place to live Within the past 12 months, did the food you bought not last and you didn't have the money to get more?: Never true Within the past 12 months, did you worry whether your food would run out before you got money to buy more?: Never true Do you have trouble paying for medicines?: No Do you have trouble getting transportation to medical appointments?: No Do you have trouble paying your heating and electricity bill?: No Do you have trouble taking care of your child, family member or friend?: No Do you have trouble with day-to-day activities such as bathing, preparing meals, shopping, managing finances, etc.?: No Are you currently unemployed and looking for a job?: No Are you interested in more education?: Yes Please select the resources that you would like help with: Education Currently or been in a relationship where the following occur: No concerns reported THRIVE Score: 0 APRIL-7 AMB Questionnaire APRIL-7 Date APRIL - 7 assessed: 10/18/24 Source: Developed by Drs. Evaristo Story, Renu Brower, Himanshu Ramos and colleagues, with an educational rhonda from [employer]. Physical exam (Primary Care) Vital Signs: Last Vital Signs Temp 98.2 F 02/21/25 13:48 Pulse 93 02/21/25 13:48 Resp 14 02/21/25 13:48 BP 116/82 02/21/25 13:48 Pulse Ox 96 02/21/25 13:48 Oxygen Delivery Method Room Air 02/21/25 13:48 BMI result Body Mass Index 34.5 Tobacco/Smoking Status: Tobacco use Status Tobacco use date assessed 02/21/25 02/21/25 13:54 Patient Tobacco Use Status Never used Tobacco 02/21/25 13:48 e-Cigarette/Vaping Use Never Used 02/21/25 13:48 Thrive Assessment: Date of Thrive Assessment Date Thrive assessed 10/17/24 02/21/25 13:45 Currently or been in a relationship where the following occur: No concerns reported Coding Level of Care Code Est Pt Level 4 (47389) Complex EM visit Add On G2211 Diagnoses Extremely dense tissue of both breasts on mammography R92.343 Abnormal MRI, breast R92.8 Bilateral shoulder pain M25.511; M25.512 Lyme disease A69.20 Positive EVIE (antinuclear antibody) R76.8 Assessment & Plan Assessment & Plan (1) Extremely dense tissue of both breasts on mammography: Code(s): R92.343 - Mammographic extreme density, bilateral breasts Category: Medical (2) Abnormal MRI, breast: Code(s): R92.8 - Other abnormal and inconclusive findings on diagnostic imaging of breast Category: Medical (3) Bilateral shoulder pain: Code(s): M25.511 - Pain in right shoulder; M25.512 - Pain in left shoulder Category: Medical (4) Lyme disease: Code(s): A69.20 - Lyme disease, unspecified Category: Medical (5) Positive EVIE (antinuclear antibody): Code(s): R76.8 - Other specified abnormal immunological findings in serum Category: Medical Plan Patient has been referred to the breast specialty Center at [facility] for further management. She has an appointment with infectious disease next week. Check Lyme test to rule out reinfection. Referred to orthopedics for left knee and left shoulder pain. She had nondiagnostic MRIs and continued pain despite a period of more than 6 weeks of activity modification and using [id number] NSAID and acetaminophen. MRI ordered of the left shoulder and left knee. A trial of cyclobenzaprine 10 mg 3 times daily as needed for pain/muscle spasm. Advised it is sedating and causes dizziness. Do not drive or operate heavy machinery. She will call if this is ineffective. Repeat EVIE. Follow up based on test results. Orders: Orders MR shoulder LT wo con Today M25.512 - Pain in left shoulder MR knee LT wo con Today M25.562 - Pain in left knee Lyme IgG/IgM w/reflex to WB Today A69.20 - Lyme disease, unspecified Referrals Orthopedics Referral M25.512 - Pain in left shoulder, M25.562 - Pain in left knee Medications: New cyclobenzaprine 10 mg PO TID PRN 30 tabs 0RF muscle spasm/pain
[2025-02-21 13:48] VITALS: BP 116/82; PULSE 93; RESP 14; TEMP 36.8; O2SAT 96; BMI 34.5
== END 2025-02-21 14:17 | disposition home or self-care (01) ==
LOC: HO.HMCFM 13:38
PROVIDERS: PCP Physician Assistant Medical; Visit Provider Physician Assistant Medical
DX: R92.343 Mammographic extreme density, bilateral breasts (principal); R92.8 Other abnormal and inconclusive findings on diagnostic imaging of breast; M25.511 Pain in right shoulder; M25.512 Pain in left shoulder; A69.20 Lyme disease, unspecified; R76.8 Other specified abnormal immunological findings in serum

== ENCOUNTER 2025-02-21 13:37 | Outpatient (REF) | payer BC, SELFPAY ==
[2025-02-22 13:28] LABS: Lyme Blot 8.35 index
[2025-02-23 12:00] LABS: Lyme Abs Screen POSITIVE
[2025-02-25 21:43] LABS: 39KD (IgG) Band REACTIVE; 41KD (IgG) Band REACTIVE; Lyme IgG Blot Interp POSITIVE (NEGATIVE); Lyme IgM Blot Interp NEGATIVE (NEGATIVE)
== END 2025-02-21 13:38 | disposition home or self-care (01) ==
LOC: HO.WFDLDS 13:37
PROVIDERS: PCP Physician Assistant Medical; Visit Provider Physician Assistant Medical
DX: R92.343 Mammographic extreme density, bilateral breasts (principal); R92.8 Other abnormal and inconclusive findings on diagnostic imaging of breast; M25.511 Pain in right shoulder; M25.512 Pain in left shoulder; R76.8 Other specified abnormal immunological findings in serum; A69.20 Lyme disease, unspecified
CPT/HCPCS: 36415; 86617; 86618

== ENCOUNTER → 2025-03-05 08:12 | Outpatient (REF) | payer BC, SELFPAY | LOC: HO.SL 08:12 | PROVIDERS: PCP Physician Assistant Medical; Visit Provider Physician Assistant Medical | DX: G47.8 Other sleep disorders (principal); R53.83 Other fatigue; R06.83 Snoring | CPT/HCPCS: 95806 ==

== ENCOUNTER → 2025-03-05 08:21 | Outpatient (BNV) | payer BC, SELFPAY | PROVIDERS: PCP Physician Assistant Medical; Visit Provider Internal Medicine | DX: R06.83 Snoring (principal) | CPT/HCPCS: 95806 ==

== ENCOUNTER → 2025-03-20 19:48 | Outpatient (BNV) | payer BC, SELFPAY | PROVIDERS: PCP Physician Assistant Medical; Visit Provider Radiology Diagnostic Radiology | DX: M22.2X2 Patellofemoral disorders, left knee (principal); M25.462 Effusion, left knee | CPT/HCPCS: 73721 ==

== ENCOUNTER 2025-03-20 19:51 | Outpatient (REF) | payer BC, SELFPAY ==
--- NOTE | ~2025-03-20 | MR_ITS ---
EXAMINATION: MRI LEFT KNEE WITHOUT CONTRAST HISTORY: M25.562 - Pain in left knee COMPARISON: Correlation is made with plain films of the left knee dated 11/07/2024. TECHNIQUE: Coronal T1 and fat-suppressed proton density, sagittal proton density and fat-suppressed proton density, and axial fat suppressed T2 weighted MR images of the left knee were obtained. FINDINGS: Bone marrow: Bone marrow signal intensity is normal. Joint effusion: There is small suprapatellar joint effusion. Knox's cyst: There is no Knox's cyst. Articular cartilage: There is mild osteoarthritis of the medial compartment with cartilage irregularity and small osteophyte formation. There is a small cartilage fissure involving the lateral patellar facet. Muscles/soft tissues: The visualized muscles demonstrate normal signal intensity. There is mild edema and swelling of the suprapatellar fat pad. There is a 1.3 x 2.9 x 1.3 cm multiseptated cystic structure inferior to the fibular head, suggestive of a ganglion. Anterior cruciate ligament: Intact Posterior cruciate ligament: Intact Medial collateral ligament: Intact Lateral collateral ligament: Intact Medial meniscus: Intact Lateral meniscus: Intact Flexor mechanism: The popliteus, gastrocnemius, and hamstring tendons are intact. Quadriceps tendon: Intact Patellar tendon: Intact Patellar retinacula: Intact MR/MR knee LT wo con IMPRESSION: 1. Mild osteoarthritis of the medial compartment. 2. Small cartilage fissure involving the lateral patellar facet. Small joint effusion. 3. Mild edema and swelling of the suprapatellar fat pad, which can be seen in the setting of prefemoral fat pad impingement syndrome. Clinical correlation is recommended. 4. Probable 1.3 x 2.9 x 1.3 cm ganglion inferior to the fibular head. Electronically signed by: Evaristo Andres MD 03/21/2025 08:05 AM EDT
== END 2025-03-20 19:52 | disposition home or self-care (01) ==
LOC: HO.MRI 19:51
PROVIDERS: PCP Physician Assistant Medical; Visit Provider Physician Assistant Medical
DX: M25.562 Pain in left knee (principal)
CPT/HCPCS: 73721

== ENCOUNTER 2025-05-07 12:59 | Outpatient (AMB) | payer BC, SELFPAY ==
--- NOTE | 2025-05-07 13:01 | A.OFFVIS_ITS ---
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 The patient describes her pain as achy in nature. The patient does report a history of being treated for Lyme disease. She denies any locking or giving way. She does walk dogs. She states that she has recently lost 30 lb because of her exercise routine. Allergies Seasonal Allergies Allergy (Verified 05/07/25 13:07) Itchy runny eyes and nose Shell Fish Allergy (Uncoded 05/07/25 13:07) Tongue Itches Medication List - Last Reconciled 05/07/25 by Santiago Chery MD acetaminophen 1,000 mg PO BID PRN cyclobenzaprine 10 mg PO TID PRN diphenhydramine-acetaminophen 25-500 mg (Tylenol PM Extra Strength) 2 tabs PO BEDTIME PRN epinephrine (EpiPen) 0.3 mg (0.3 mL) IM Q10M PRN ibuprofen 200 mg PO Q6H PRN PFSH Medical History Left shoulder pain Left knee pain Bilateral shoulder pain Abnormal MRI, breast Snoring Fatigue Non-restorative sleep Family history of breast cancer in first degree relative Extremely dense tissue of both breasts on mammography Lyme disease Positive EVIE (antinuclear antibody) Elevated blood pressure reading without diagnosis of hypertension Pain, joint, multiple sites Abnormal blood chemistry test Screening for cardiovascular condition Routine physical examination Family History Sister Breast cancer Social History Housing: House Alcohol intake: current Comment: Occassionaly Patient Tobacco Use Status: Never used Tobacco e-Cigarette/Vaping Use: Never Used Second Hand Smoke Exposure: No service: No Current occupational status: employed 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 Cognitive needs: No Hearing needs: No Vision needs: No Physical Exam Vital Signs: BMI result Body Mass Index 33.8 Extrem Other: Left knee examination shows a minimal effusion, minimal crepitus with range of motion, no joint line tenderness Results Reviewed Results Reviewed: MRI of the patient's left knee shows minimal degenerative changes, a mild effusion, no evidence of meniscus or ligamentous tearing Assessment & Plan Assessment & Plan (1) Left knee pain: Code(s): M25.562 - Pain in left knee Category: Medical (2) Pain, joint, multiple sites: Code(s): M25.50 - Pain in unspecified joint Category: Medical Plan Ms. Smith presents with left knee pain and diffuse joint pain of unclear etiology. At this point the patient does not appear to have anything surgically correctable on her left knee MRI. The patient may have an undiagnosed inflammatory process. Thus, I will refer her to the Rheumatology Department here at [facility]. We will hold off on a cortisone injection at this time. She will continue with her current exercise program. Feel free to call me at any time should questions regarding her orthopedic management arise. I spent 22 minutes in reviewing the patient's records and imaging studies, seeing the patient and documenting in the medical record. Orders: Referrals Rheumatology Referral M25.50 - Pain in unspecified joint, R76.8 - Other specified abnormal immunological findings in serum Coding Level of Care Code New Pt Level 3 (89365) Complex EM visit Add On G2211 Diagnoses Left knee pain M25.562 Pain, joint, multiple sites M25.50
[2025-05-07 13:08] VITALS: BMI 33.8
== END 2025-05-07 13:23 | disposition home or self-care (01) ==
LOC: HO.HOS 12:59
PROVIDERS: PCP Physician Assistant Medical; Visit Provider Orthopaedic Surgery
DX: M25.562 Pain in left knee (principal); M25.50 Pain in unspecified joint
CPT/HCPCS: 99203